=== PATIENT | female | born 1940 | race Caucasian/White ===

== ENCOUNTER 2016-07-03 15:34 | Observation (INO) | payer OTHER, MEDICARE ==
[~2016-07-03] VITALS: Ht 162.6 cm; Wt 77.2 kg
[~2016-07-03 15:34] MED LIST: CIPR-255 PO; CLTP PO; FLVHFA110 INH; GABA-1218 PO; LISI20TA55 PO; ONDA4TAB7 SL; PANT40TA PO; TRAM-10 PO
[2016-07-03] MEDS ORDERED: ASPIRIN 81 MG CHEW PO STA (16:43)
--- NOTE | 2016-07-03 16:48 | EMERGENCY ROOM VISIT NOTE ---
ED Visit Note First contact with patient: 16:26 I have seen and examined this patient with Yobani David and generally agree with the treatment plan as discussed. Problem List Medical Problems: (1) Asthma Status: Chronic (2) Chronic polyps Status: Chronic (3) DJD (degenerative joint disease) Status: Chronic (4) Esophageal Reflux Status: Chronic (5) Fusion of lumbar spine Status: Resolved (6) HTN Status: Chronic (7) Tubal Ligation Status Status: Chronic Surgical Problems: (1) History of appendectomy Status: Resolved (2) Previous back surgery Status: Resolved (3) S/P knee replacement Status: Resolved Current/Historical Medications Scheduled Calcium/Vitamin D (Caltrate 600 Plus *), 1 TAB PO DAILY Ciprofloxacin Hcl (Cipro), 500 MG PO BID Fluticasone Propionate (Flovent Hfa 110MCG Inhaler *), 2 PUFF INH BID Gabapentin (Neurontin), 300 MG PO DHS Lisinopril/Hctz (Prinzide 20-25MG), 1 TAB PO DAILY Pantoprazole Sodium (Protonix), 40 MG PO DAILY Scheduled PRN Ondansetron (Zofran Odt), 4 MG SL Q6H PRN for Nausea Tramadol (Ultram), 50 MG PO Q6 PRN for Pain Allergies Coded Allergies: No Known Allergies (Verified , 10/21/14) Vital Signs Date Time Temp Pulse Resp B/P Pulse Ox O2 Delivery O2 Flow Rate FiO2 07/03/16 16:25 74 07/03/16 16:20 79 18 133/66 99 Room Air 07/03/16 16:20 98 Room Air 07/03/16 15:47 36.9 81 18 141/80 97 Room Air Laboratory Results Test 07/03/16 16:43 Departure Information Referrals Ludwin Jackson III, M.D. (PCP) Patient Instructions My [facility]
[2016-07-03 16:51] LABS: BASO % 0.3 %; BASO ABS # 0.02 K/uL (0-0.2); COMPLETE YES; EOS % 3.8 %; HEMATOCRIT 37.8 % (37-47); IG% 0.2 %; LYMPH ABS # 1.98 K/uL (1.2-3.4); MEAN CORPUSCULAR HEMOGLOBIN 31.1 pg (25-34); MEAN CORPUSCULAR HGB CONC 33.1 g/dl (32-36); MEAN PLATELET VOLUME 8.8 fL (7.4-10.4); MONO % 9.4 %; NEUT % 56.3 %; PLATELET COUNT 242 K/uL (130-400); RED BLOOD COUNT 4.02 M/uL (4.2-5.4); WHITE BLOOD COUNT 6.61 K/uL (4.8-10.8)
[2016-07-03] MEDS ORDERED: FLVHFA110 INH (16:52)
[2016-07-03] MEDS ORDERED: SUCR1TAB29 PO (16:52)
[2016-07-03] MEDS ORDERED: ASPI81TA28 PO (16:52)
[2016-07-03] MEDS ORDERED: LSN/10125 PO (16:52)
[2016-07-03] MEDS ORDERED: CALCTAB7 PO (16:52)
[2016-07-03] MEDS ORDERED: PENI-82 PO (16:52)
[2016-07-03] MEDS ORDERED: SACC250C PO (16:52)
[2016-07-03 17:06] LABS: PROTHROMBIN TIME (PATIENT) 10.2 SECONDS (9.0-12.0)
[2016-07-03 17:13] LABS: BUN/CREATININE RATIO 21.4 (10-20); CALCIUM 9.1 mg/dl (8.5-10.1); CREATININE 0.82 mg/dl (0.60-1.20)
[2016-07-03 17:19] LABS: ALB/GLOB RATIO 0.9 (0.9-2); CKMB/CK RATIO 1.7 (0-3.0)
--- NOTE | 2016-07-03 17:34 | DIAGNOSTIC IMAGING REPORT ---
CHEST ONE VIEW PORTABLE CLINICAL HISTORY: Atypical chest pain COMPARISON STUDY: 10/21/2014 FINDINGS: The cardiac and mediastinal contours are normal. There is no evidence of focal pulmonary consolidation. There is no evidence of failure. No pleural effusions are visualized.[ There is right shoulder calcific tendinitis. IMPRESSION: No active disease in the chest. Electronically signed by: Sandeep Carter M.D. 07/03/2016 5:33 PM Dictated Date/Time: 07/03/2016 5:32 PM
--- NOTE | 2016-07-03 17:46 | EMERGENCY ROOM VISIT NOTE ---
History First contact with patient: 16:26 Chief Complaint: CHEST PAIN Stated Complaint: PAIN IN HEART/CHEST Nursing Triage Summary: Pt c/o 'Pains in my chest", left side, since 0130 this morning. Denies SOB at rest. Pain radiates into left back and left arm. When she first woke up there was pain in her face as well. History of Present Illness Patient is 75-year-old white female with past medical history significant for hypertension and GERD who presents emergency department for evaluation of chest pain 14 hours. Patient reports that she has actually been having episodes of chest pain intermittently for the last few months. She was set up for a stress test, but did not follow through with it. She states that she was woken from sleep at 1:30 this morning with a "hard" midsternal chest pain that radiated to her left face. She had difficulty getting comfortable. She paced for about an hour, sent in her chair for a little bit, and gradually the pain subsided. She reported feeling a little off balance and stated that her "head felt funny" during the episode of pain. She denies any associated shortness of breath, nausea or vomiting. She did not take any medications for her pain. At its worst, she would've rated it a 10/10. She has continued to have mild episodes of pain that comes and goes throughout the day. She presently rates her discomfort a 2/10. She notes that she has recently begun to experience shortness of breath and chest pain when walking [place]. She does have a history of acid reflux, but states that she was recently placed on a new medication for this, and it has actually helped her symptoms. The pain she experienced today did not seem consistent with her reflux. She has not been ill recently with any cold or upper respiratory symptoms. She denies any cough or sputum production. No abdominal pain or urinary symptoms. She reports chronic diarrhea since having C. difficile colitis last year. Review of Systems Review of systems as per HPI. All other systems reviewed were negative. 10 systems reviewed. Past Medical/Surgical History Medical Problems: (1) Asthma (2) Chronic polyps (3) Dehydration (4) DJD (degenerative joint disease) (5) Esophageal Reflux (6) HTN (7) UTI (urinary tract infection) (8) Vomiting Surgical Problems: (1) Fusion of lumbar spine (2) History of appendectomy (3) Previous back surgery (4) S/P knee replacement (5) Tubal Ligation Status Electronic medical records are reviewed and summarized as above/below. See Problem List. Family History Gastrointestinal disorder Heart disease Hypertension Social History Smoking Status: Never Smoker Alcohol Use: none Drug Use: none Marital Status: Housing Status: lives with family Current/Historical Medications Scheduled Aspirin (Aspirin Ec), 81 MG PO DAILY Calcium Carbonate-Vitamin D W/ (Caltrate 600 Plus), 1 TAB PO DAILY Fluticasone Propionate (Flovent Hfa), 2 PUFF INH BID Hctz/Lisinopril (Lisinopril/Hctz 10/12.5 Mg), 1 TAB PO DAILY Penicillin V Potassium (Veetids), 500 MG PO QID Saccharomyces Boulardii (Florastor), 1 CAP PO DAILY Sucralfate (Carafate), 1 GM PO DAILY Allergies Coded Allergies: No Known Allergies (Verified , 07/03/16) Physical Exam Vital Signs Date Time Temp Pulse Resp B/P Pulse Ox O2 Delivery O2 Flow Rate FiO2 07/03/16 17:47 77 18 129/78 97 Room Air 07/03/16 16:25 74 07/03/16 16:20 79 18 133/66 99 Room Air 07/03/16 16:20 98 Room Air 07/03/16 15:47 36.9 81 18 141/80 97 Room Air Physical Exam CONSTITUTIONAL: Patient is a pleasant, well-appearing 75-year-old white female who is awake and alert and in no acute distress. EYES: Pupils equal, round, reactive to light and accommodation. EOMs intact without nystagmus. Sclera are anicteric. ENT: Tympanic membranes intact, with normal landmarks. External canals are clear. Oral and nasopharynx are clear. Mucous membranes are moist, no lesions , tongue and gums appear normal. NECK: No bruits auscultated. Supple without lymphadenopathy. No thyromegaly. No meningeal signs. Full active range of motion without discomfort. CARDIOVASCULAR: Regular rate and rhythm, with normal S1 and S2, no murmur or gallop or rub is heard. No carotid bruits auscultated. No JVD. Peripheral pulses easy to palpable. RESPIRATORY: Breath sounds equal and clear to auscultation without wheezes, rales, or rhonchi heard. Full and equal chest expansion without accessory muscle use or retractions. GI: Bowel sounds are present. Abdomen is soft, nontender, nondistended. No organomegaly. No pulsatile masses. No guarding or rebound. MUSCULOSKELETAL: Full range of motion of extremities x 4 with good strength. No cyanosis, edema, joint tenderness or swelling. No deformity. INTEGUMENTARY: No lesions or rash, normal skin turgor. NEUROLOGICAL: Alert, oriented, and cooperative. Cranial nerves, sensation and strength grossly intact. Pupils round, equal, and react to light, EOMs are full. LYMPH: No lymphadenopathy. Medical Decision & Procedures ER Provider Diagnostic Interpretation: CHEST ONE VIEW PORTABLE CLINICAL HISTORY: Atypical chest pain COMPARISON STUDY: 10/21/2014 FINDINGS: The cardiac and mediastinal contours are normal. There is no evidence of focal pulmonary consolidation. There is no evidence of failure. No pleural effusions are visualized. There is right shoulder calcific tendinitis. IMPRESSION: No active disease in the chest. Laboratory Results 07/03/16 16:30 Red Blood Count 4.02, Mean Corpuscular Volume 94.0, Mean Corpuscular Hemoglobin 31.1, Mean Corpuscular Hemoglobin Concent 33.1, Mean Platelet Volume 8.8, Neutrophils (%) (Auto) 56.3, Lymphocytes (%) (Auto) 30.0, Monocytes (%) (Auto) 9.4, Eosinophils (%) (Auto) 3.8, Basophils (%) (Auto) 0.3, Neutrophils # (Auto) 3.73, Lymphocytes # (Auto) 1.98, Monocytes # (Auto) 0.62, Eosinophils # (Auto) 0.25, Basophils # (Auto) 0.02 07/03/16 16:30 Test 07/03/16 16:30 07/03/16 16:48 White Blood Count 6.61 K/uL (4.8-10.8) Red Blood Count 4.02 M/uL (4.2-5.4) Hemoglobin 12.5 g/dL (12.0-16.0) Hematocrit 37.8 % (37-47) Mean Corpuscular Volume 94.0 fL (80-100) Mean Corpuscular Hemoglobin 31.1 pg (25-34) Mean Corpuscular Hemoglobin Concent 33.1 g/dl (32-36) Platelet Count 242 K/uL (130-400) Mean Platelet Volume 8.8 fL (7.4-10.4) Neutrophils (%) (Auto) 56.3 % Lymphocytes (%) (Auto) 30.0 % Monocytes (%) (Auto) 9.4 % Eosinophils (%) (Auto) 3.8 % Basophils (%) (Auto) 0.3 % Neutrophils # (Auto) 3.73 K/uL (1.4-6.5) Lymphocytes # (Auto) 1.98 K/uL (1.2-3.4) Monocytes # (Auto) 0.62 K/uL (0.11-0.59) Eosinophils # (Auto) 0.25 K/uL (0-0.5) Basophils # (Auto) 0.02 K/uL (0-0.2) RDW Standard Deviation 48.9 fL (36.4-46.3) RDW Coefficient of Variation 14.1 % (11.5-14.5) Immature Granulocyte % (Auto) 0.2 % Immature Granulocyte # (Auto) 0.01 K/uL (0.00-0.02) Prothrombin Time 10.2 SECONDS (9.0-12.0) Prothromb Time International Ratio 1.0 (0.9-1.1) Activated Partial Thromboplast Time 25.9 SECONDS (21.0-31.0) Partial Thromboplastin Ratio 1.0 Anion Gap 5.0 mmol/L (3-11) Est Creatinine Clear Calc Drug Dose 59.1 ml/min Estimated GFR () 80.6 Estimated GFR (Non- 69.5 BUN/Creatinine Ratio 21.4 (10-20) Calcium Level 9.1 mg/dl (8.5-10.1) Total Bilirubin 0.3 mg/dl (0.2-1) Aspartate Amino Transf (AST/SGOT) 21 U/L (15-37) Alanine Aminotransferase (ALT/SGPT) 19 U/L (12-78) Alkaline Phosphatase 85 U/L (45-117) Total Creatine Kinase 92 U/L (26-192) Creatine Kinase MB 1.6 ng/ml (0.5-3.6) Creatine Kinase MB Ratio 1.7 (0-3.0) Total Protein 7.5 gm/dl (6.4-8.2) Albumin 3.5 gm/dl (3.4-5.0) Globulin 4.0 gm/dl (2.5-4.0) Albumin/Globulin Ratio 0.9 (0.9-2) Bedside Troponin I 0.000 ng/ml (0-0.045) Medications Administered Medications (Trade) Dose Ordered Sig/Luis Route Start Time Stop Time Status Last Admin Dose Admin Aspirin (Aspirin Chew) 324 mg NOW STAT PO 07/03/16 16:43 07/03/16 16:46 DC 07/03/16 16:53 324 MG ECG Indication: chest pain Rate (beats per minute): 73 Rhythm: normal sinus Findings: no acute ischemic change, no ectopy Change: no significant change ED Course The patient was seen and assessed as above. Old records were reviewed. IV access was obtained and laboratory studies were collected. EKG was performed and was as noted above. She is placed on a cardiac rehabilitation program director. She was medicated with aspirin 324 mg chewable. Chest x-ray was obtained and was unremarkable. Laboratory studies noted a normal white count of 6600, H&H 12.5 and 37.8, platelets 242,000, INR 1.0. Electrolytes are within normal limits. Renal function is normal. Liver functions are not elevated and cardiac enzymes are negative 1. The patient rested comfortably and remained hemodynamically stable while in the emergency department awaiting the results of her workup. All laboratory and diagnostic imaging studies were reviewed with attending physician who also independently evaluated the patient. Findings were discussed with the patient and her daughter at length. She has a negative workup for ischemia at this time , however given her presentation and comorbidities, it was felt that the patient would benefit from further care and evaluation in the hospital. She was reviewed with the [facility] service for further management. Differential diagnosis includes acute myocardial infarction, acute coronary syndrome, myocarditis, pericarditis, unstable angina, pulmonary embolism, pneumonia, pneumothorax, cardiomyopathy, congestive heart failure, anemia , asthma exacerbation, GERD, esophagitis, musculoskeletal, anxiety, costochondritis, among others. Medical Decision See ED course. Impression Primary Impression: Substernal precordial chest pain Departure Information Referrals Ludwin Jackson III, M.D. (PCP) [facility] Instructions [facility]
[2016-07-03] MEDS ORDERED: ACETAMINOPHEN 325 MG TAB PO PRN (19:45)
[2016-07-03] MEDS ORDERED: ONDANSETRON INJ 2 MG/ML 2 ML VIAL IV PRN (19:45)
[2016-07-03] MEDS ORDERED: FLUTICASONE HFA 110MCG INHALER INH PRN (20:00)
[2016-07-03] MEDS ORDERED: IV FLUIDS COMPLETED PRN (20:00)
--- NOTE | 2016-07-03 20:25 | History and Physical ---
History & Physical Date & Time of Service: July 03, 2016 at 19:48 Chief Complaint: Pain In Heart/Chest Primary Care Physician: Ludwin Jackson III, M.D. History of Present Illness Source: patient, clinic records This is a 75 year old female with PMH of hypertension, GERD, asthma, and other problems listed below who presents to the ED for chest pain. Patient states pain started at 1:30 am this morning. She describes discomfort as "pain" in left chest with radiation to left jaw, left arm, left shoulder. She tried pacing and sitting then eventually went back to sleep. Then throughout the day she continued with intermittent chest pain throughout the day. This was unrelated to activity. She also noted her head "not feeling right" today. She called her PCP today at the prompting of her family and was referred to the ER. Currently pain is rated 2-3/10. She does report for past few months she had similar pain when exerting herself walking uphill and had associated DAWSON. She was given 4 baby aspirin in ER. She has been taking Carafate with improvement of her reflux symptoms. She states today's chest pain feels different from her reflux. She reports chronic diarrhea since having C. diff 1 year ago. No fever, chills, diaphoresis, dizziness, vision change, CHAU, weakness, numbness, URI symptoms, cough, SOB at rest, wheezing, N/V, urinary change, edema, calf pain, rash, anxiety. No recent heavy lifting. She has chronic back and knee joint issues. Last stress test in 2003 was negative. Pt states about a month ago stress test was ordered by PCP but she did not have it done. Past Medical/Surgical History Medical Problems: Asthma Status: Chronic Chronic polyps Status: Resolved DJD (degenerative joint disease) Status: Chronic GERD (gastroesophageal reflux disease) Status: Chronic HTN Status: Chronic Surgical Problems: Fusion of lumbar spine Status: Resolved H/O total knee replacement Status: Chronic H/O tubal ligation Status: Chronic History of appendectomy Status: Resolved S/P dilatation and curettage Status: Chronic S/P knee replacement Status: Resolved Family History Gastrointestinal disorder Heart disease FATHER ( of [place] in his 70s) UNCLE UNCLE Hypertension Social History Smoking Status: Never Smoker Alcohol Use: none Marital Status: Housing status: lives with significant other Immunizations History of Influenza Vaccine: No History of Tetanus Vaccine?: No History of Pneumococcal: No History of Hepatitis B Vaccine: No Multi-Drug Resistant Organisms History of MDRO: No Allergies Coded Allergies: No Known Allergies (Verified , 07/03/16) Home Medications Scheduled Aspirin (Aspirin Ec), 81 MG PO HS Calcium Carbonate-Vitamin D W/ (Caltrate 600 Plus), 1 TAB PO DAILY Hctz/Lisinopril (Lisinopril/Hctz 10/12.5 Mg), 1 TAB PO DAILY Saccharomyces Boulardii (Florastor), 1 CAP PO BID Sucralfate (Carafate), 1 GM PO ACHS Scheduled PRN Fluticasone Propionate (Flovent Hfa), 2 PUFF INH BID PRN for SOB/Wheezing Review of Systems Ten systems reviewed and negative except as noted in HPI. Physical Exam Vital Signs Date Time Temp Pulse Resp B/P Pulse Ox O2 Delivery O2 Flow Rate FiO2 07/03/16 19:43 75 18 156/78 98 Room Air 07/03/16 17:47 77 18 129/78 97 Room Air 07/03/16 16:25 74 07/03/16 16:20 79 18 133/66 99 Room Air 07/03/16 16:20 98 Room Air 07/03/16 15:47 36.9 81 18 141/80 97 Room Air General Appearance: WD/WN, no apparent distress, + pertinent finding (pleasant alert 75 year old female, daughter and son at bedside) Head: normocephalic, atraumatic Eyes: normal inspection, PERRL, EOMI, sclerae normal ENT: hearing grossly normal, pharynx normal Neck: supple, trachea midline Respiratory/Chest: lungs clear, normal breath sounds, no respiratory distress Cardiovascular: regular rate, rhythm, no murmur, normal peripheral pulses Abdomen/GI: normal bowel sounds, non tender, soft Extremities/Musculoskelatal: no calf tenderness, no pedal edema, + pertinent finding (no pain with left shoulder ROM) Neurologic/Psych: alert, normal mood/affect, oriented x 3, + pertinent finding (no focal deficit on gross examination) Skin: normal color, warm/dry, no rash (no rash on the chest) Diagnostics Laboratory Results Results Past 24 Hours Test 07/03/16 16:30 07/03/16 16:48 Range/Units White Blood Count 6.61 4.8-10.8 K/uL Red Blood Count 4.02 4.2-5.4 M/uL Hemoglobin 12.5 12.0-16.0 g/dL Hematocrit 37.8 37-47 % Mean Corpuscular Volume 94.0 80-100 fL Mean Corpuscular Hemoglobin 31.1 25-34 pg Mean Corpuscular Hemoglobin Concent 33.1 32-36 g/dl Platelet Count 242 130-400 K/uL Mean Platelet Volume 8.8 7.4-10.4 fL Neutrophils (%) (Auto) 56.3 % Lymphocytes (%) (Auto) 30.0 % Monocytes (%) (Auto) 9.4 % Eosinophils (%) (Auto) 3.8 % Basophils (%) (Auto) 0.3 % Neutrophils # (Auto) 3.73 1.4-6.5 K/uL Lymphocytes # (Auto) 1.98 1.2-3.4 K/uL Monocytes # (Auto) 0.62 0.11-0.59 K/uL Eosinophils # (Auto) 0.25 0-0.5 K/uL Basophils # (Auto) 0.02 0-0.2 K/uL RDW Standard Deviation 48.9 36.4-46.3 fL RDW Coefficient of Variation 14.1 11.5-14.5 % Immature Granulocyte % (Auto) 0.2 % Immature Granulocyte # (Auto) 0.01 0.00-0.02 K/uL Prothrombin Time 10.2 9.0-12.0 SECONDS Prothromb Time International Ratio 1.0 0.9-1.1 Activated Partial Thromboplast Time 25.9 21.0-31.0 SECONDS Partial Thromboplastin Ratio 1.0 Sodium Level 142 136-145 mmol/L Potassium Level 4.0 3.5-5.1 mmol/L Chloride Level 107 98-107 mmol/L Carbon Dioxide Level 30 21-32 mmol/L Anion Gap 5.0 3-11 mmol/L Blood Urea Nitrogen 18 7-18 mg/dl Creatinine 0.82 0.60-1.20 mg/dl Est Creatinine Clear Calc Drug Dose 59.1 ml/min Estimated GFR () 80.6 Estimated GFR (Non- 69.5 BUN/Creatinine Ratio 21.4 10-20 Random Glucose 94 70-99 mg/dl Calcium Level 9.1 8.5-10.1 mg/dl Total Bilirubin 0.3 0.2-1 mg/dl Aspartate Amino Transf (AST/SGOT) 21 15-37 U/L Alanine Aminotransferase (ALT/SGPT) 19 12-78 U/L Alkaline Phosphatase 85 45-117 U/L Total Creatine Kinase 92 26-192 U/L Creatine Kinase MB 1.6 0.5-3.6 ng/ml Creatine Kinase MB Ratio 1.7 0-3.0 Total Protein 7.5 6.4-8.2 gm/dl Albumin 3.5 3.4-5.0 gm/dl Globulin 4.0 2.5-4.0 gm/dl Albumin/Globulin Ratio 0.9 0.9-2 Bedside Troponin I 0.000 0-0.045 ng/ml Diagnostic Radiology CHEST ONE VIEW PORTABLE CLINICAL HISTORY: Atypical chest pain COMPARISON STUDY: 10/21/2014 FINDINGS: The cardiac and mediastinal contours are normal. There is no evidence of focal pulmonary consolidation. There is no evidence of failure. No pleural effusions are visualized.[ There is right shoulder calcific tendinitis. IMPRESSION: No active disease in the chest. EKG NSR, no ST or T wave abnormalities, no significant change from prior EKG as confirmed by cardiology read Impression Assessment and Plan CHEST PAIN Rule out ACS; risk factors include hypertension, age, + family history 2 month history of exertional CP/ DAWSON; now having pain at rest CXR- no acute findings EKG- no ischemic findings Initial troponin negative Trend serial cardiac enzymes Check echo Fasting lipid panel in am Given aspirin 324 mg in ER Continue baby aspirin NPO after midnight Consult cardiology for inpatient vs. outpatient dobutamine stress test HYPERTENSION BP is stable Continue lisinopril-HCTZ ASTHMA Not in acute exacerbation Continue home inhaler GERD Continue Carafate DVT PROPHYLAXIS Lovenox SQ CODE STATUS Full code DISPOSITION Observation to telemetry Lives with Follows with Dr. Jackson for primary care Patient seen in collaboration with Dr. Brink. Please see his addendum. VTE Prophylaxis VTE Risk Assessment Done? Y/N: Yes Risk Level: Moderate
--- NOTE | 2016-07-03 20:29 | History and Physical ---
History & Physical Date of Service July 03, 2016. History & Physical This is a 75 year old female with a PMH of HTN, asthma, GERD presents with chest pain that has been intermittent for the past few months - she was to get an outpatient stress test as per PCP, but she never got this done. She states that the left sided chest pain began at night, and woke her up from sleep - it radiated to her jaw and left arm. No associated SOB/DAWSON, no nausea/vomiting, no fevers/chills. Chest pain has subsided since presenting to the ER. VITALS: Last Vital Signs Documentation Date Time Temp Pulse Resp B/P Pulse Ox O2 Delivery O2 Flow Rate FiO2 07/03/16 19:43 75 18 156/78 98 Room Air 07/03/16 15:47 36.9 GEN: no acute distress HEENT: NC/AT CVS: +S1, S2, RRR LUNGS: CTA b/l, no wheezing ABD: soft, NT/ND EXT: no edema Chest Pain r/o ACS EKG with no ST interval changes, no T wave changes; NSR initial set of cardiac enzymes negative will obtain three sets of enzymes echo for completeness continue aspirin no nitro given as chest pain has resolved cardiology consultation - stress testing HTN blood pressure slightly elevated she takes Lisinopril-HCTZ at home, which we will continue monitor BP and adjust accordingly GERD she takes carafate, which helps her epigastric pain, possibly from GERD? Asthma continue home inhalers, in no exacerbation DVT ppx Lovenox FULL CODE
[2016-07-03] MEDS: SACCHAROMYCES BOUL (FLORASTOR) 250 MG CAP PO SCH (21:00)
[2016-07-03] MEDS ORDERED: ASPIRIN 81 MG ECTAB PO SCH (21:00)
[2016-07-03 21:09] VITALS: BP 161/82; PULSE 74; TEMP 36.7; O2SAT 98
[2016-07-03] MEDS ORDERED: ENOXAPARIN 40 MG/0.4 ML SYR SC SCH (22:00)
[2016-07-03 22:27] VITALS: Ht 162.6 cm; Wt 77.2 kg
[2016-07-03] MEDS: SUCRALFATE 1 GM TAB PO SCH (22:31)
[2016-07-03 22:44] VITALS: BP 151/83; PULSE 70; TEMP 36.1; O2SAT 97
[2016-07-03 23:54] LABS: CKMB/CK RATIO 2.4 (0-3.0)
[2016-07-04] VITALS (7 sets, daily range): BP systolic 102–148; BP diastolic 64–82; PULSE 67–77; TEMP 36.5–36.7; O2SAT 93–98
[2016-07-04 06:03] LABS: MEAN CORPUSCULAR HEMOGLOBIN 30.5 pg (25-34); MEAN CORPUSCULAR HGB CONC 32.5 g/dl (32-36); MEAN PLATELET VOLUME 8.8 fL (7.4-10.4); PLATELET COUNT 210 K/uL (130-400); RED BLOOD COUNT 3.83 M/uL (4.2-5.4); WHITE BLOOD COUNT 5.65 K/uL (4.8-10.8)
[2016-07-04] MEDS: SUCRALFATE 1 GM TAB PO SCH ×2 (06:08→13:20)
[2016-07-04 06:33] LABS: BLOOD UREA NITROGEN 17 mg/dl (7-18); BUN/CREATININE RATIO 21.1 (10-20); CALCIUM 8.9 mg/dl (8.5-10.1); CARBON DIOXIDE 32 mmol/L (21-32); CHLORIDE 105 mmol/L (98-107); CREATININE 0.81 mg/dl (0.60-1.20); GLUCOSE 89 mg/dl (70-99); POTASSIUM 3.7 mmol/L (3.5-5.1); SODIUM 142 mmol/L (136-145)
[2016-07-04 06:38] LABS: CHOLESTEROL 197 mg/dl (0-200); CHOLESTEROL/HDL RATIO 3.1; CKMB/CK RATIO 1.6 (0-3.0); HDL CHOLESTEROL 64 mg/dl; LDL CHOLESTEROL CALCULATED 113 mg/dl; TRIGLYCERIDES 100 mg/dl (0-150); VERY LOW DENSITY LIPOPROT CALC 20 mg/dl
[2016-07-04] MEDS ORDERED: CALCIUM 600MG + VIT D 400 IU TAB PO SCH (09:00)
[2016-07-04] MEDS ORDERED: LISINOPRIL/HCTZ 10/12.5MG TAB PO SCH (09:00)
--- NOTE | 2016-07-04 10:56 | ECHOCARDIOGRAM REPORT ---
*NOTICE TO RECEIVING LIBERTARIAN AGENCY This information is strictly Confidential and protected under [place] law. [place] law prohibits you from making any further disclosure of this information unless further disclosure is expressly permitted by the written consent of the person to whom it pertains or is authorized by law. A general authorization for the release of medical or other information is not sufficient for this purpose. Hospital accepts no responsibility if the information is made available to any other person, INCLUDING THE PATIENT. Interpretation Summary * Conclusions -- * Ejection Fraction = 60-65%. * The left ventricular wall motion is normal. * Aortic valve sclerosis mild, without significant aortic valvular stenosis. * There is mild tricuspid regurgitation. Procedure Details * A complete two-dimensional transthoracic echocardiogram was performed (2D, M-mode, Doppler and color flow Doppler). Left Ventricle * The left ventricle is normal in size. * There is no thrombus. * There is normal left ventricular wall thickness. * Ejection Fraction = 60-65%. * Left ventricular systolic function is normal. * The left ventricular wall motion is normal. Right Ventricle * The right ventricle is normal size. * The right ventricular systolic function is normal as assessed by tricuspid annular plane systolic excursion (TAPSE) (normal >1.5 cm). Atria * The left atrial size is normal. * Right atrial size is normal. * There is no evidence of atrial septal defect, but resolution does not allow assessment for a patent foramen ovale. Mitral Valve * There is mild mitral annular calcification. * There is no mitral valve stenosis. * Significant mitral regurgitation is absent. Tricuspid Valve * The tricuspid valve is normal. * There is no tricuspid stenosis. * There is mild tricuspid regurgitation. * Doppler findings do not suggest pulmonary hypertension. Aortic Valve * The aortic valve is trileaflet. * Aortic valve sclerosis mild, without significant aortic valvular stenosis. * Aortic stenosis is absent. * There is no significant aortic regurgitation. Pulmonic Valve * The pulmonary valve is not well seen, but the Doppler examination is normal without significant regurgitation or stenosis. Great Vessels * The aortic root and proximal ascending aorta are normal sized. Pericardium/Pleural * There is no pericardial effusion. Great Vessels * Normal inferior vena cava diameter and respiratory variation suggests normal central venous pressure. Left Ventricular Diastolic Function * Pulse wave TDI of the anterior and posterior mitral annulas demonstrates normal LV relaxation MMode 2D Measurements and Calculations IVSd 0.88 cm LVIDd 3.9 cm LVIDs 2.5 cm LVPWd 0.84 cm IVS/LVPW 1.1 FS 36.3 % EDV(Teich) 64.4 ml ESV(Teich) 21.4 ml EF(Teich) 66.7 % EDV(cubed) 57.6 ml ESV(cubed) 14.9 ml EF(cubed) 74.2 % LV mass(C)d 97.2 grams LV mass(C)dI 53.0 grams/m\S\2 SV(Teich) 42.9 ml SI(Teich) 23.4 ml/m\S\2 SV(cubed) 42.7 ml SI(cubed) 23.3 ml/m\S\2 Ao root diam 3.0 cm Ao root area 7.0 cm\S\2 ACS 1.8 cm LA dimension 2.3 cm asc Aorta Diam 2.9 cm LA/Ao 0.77 LVOT diam 2.0 cm LVOT area 3.1 cm\S\2 LVAd ap4 18.7 cm\S\2 LVLd ap4 6.6 cm EDV(MOD-sp4) 45.4 ml EDV(sp4-el) 45.4 ml LVAs ap4 10.0 cm\S\2 LVLs ap4 5.9 cm ESV(MOD-sp4) 15.2 ml ESV(sp4-el) 14.5 ml EF(MOD-sp4) 66.5 % EF(sp4-el) 68.0 % LVAd ap2 18.8 cm\S\2 LVLd ap2 6.3 cm EDV(MOD-sp2) 48.8 ml EDV(sp2-el) 47.7 ml LVAs ap2 9.9 cm\S\2 LVLs ap2 4.9 cm ESV(MOD-sp2) 16.8 ml ESV(sp2-el) 16.9 ml EF(MOD-sp2) 65.5 % EF(sp2-el) 64.6 % LVLd %diff -4.66 % EDV(MOD-bp) 46.6 ml LVLs %diff -18.75 % ESV(MOD-bp) 17.3 ml EF(MOD-bp) 63.0 % SV(MOD-sp4) 30.2 ml SI(MOD-sp4) 16.4 ml/m\S\2 SV(MOD-sp2) 31.9 ml SI(MOD-sp2) 17.4 ml/m\S\2 SV(MOD-bp) 29.4 ml SI(MOD-bp) 16.0 ml/m\S\2 SV(sp4-el) 30.9 ml SI(sp4-el) 16.8 ml/m\S\2 SV(sp2-el) 30.8 ml SI(sp2-el) 16.8 ml/m\S\2 Doppler Measurements and Calculations MV E max corinne 91.2 cm/sec MV A max corinne 84.4 cm/sec MV E/A 1.1 MV dec time 0.23 sec Ao V2 max 120.2 cm/sec Ao max PG 5.8 mmHg Ao max PG (full) 0.45 mmHg BOBY(V,A) 3.0 cm\S\2 BOBY(V,D) 3.0 cm\S\2 LV V1 max PG 5.3 mmHg LV V1 max 115.4 cm/sec PA V2 max 83.4 cm/sec PA max PG 2.8 mmHg PA acc slope 536.8 cm/sec\S\2 PA acc time 0.10 sec PI max corinne 97.3 cm/sec PI max PG 3.8 mmHg PI dec slope 82.2 cm/sec\S\2 PI P1/2t 346.5 msec TR max corinne 221.1 cm/sec PA pr(Accel) 33.1 mmHg
--- NOTE | 2016-07-04 11:56 | CARDIOLOGY CONSULTATION ---
DATE OF CONSULTATION: 07/04/2016 REASON FOR CONSULTATION: Chest pain. REFERRING PHYSICIAN: Dr. Brink. CHIEF COMPLAINT ON ADMISSION: Chest pain. HISTORY OF PRESENT ILLNESS: Ms. Nicolas is a 75-year-old female, presented to the Emergency Department with chest discomfort at rest. The patient describes a pain in her left chest, which radiated to left side of her jaw and face as well as left arm and shoulder. The pain aroused her from sleep. She began walking in the halls to improve the discomfort. The pain was not affected by activity. She reports intermittent chest discomfort over the last several months. She notes an area of her yard where she walks on an incline and is generally can induce chest pain. She is currently pain free. Carries a history of GERD; however, does not feel this pain is similar to her prior heartburn. Denies cough, fever, chills or URI symptoms. No orthopnea, PND, or lower extremity edema. Last stress was in 2008, found to be negative for inducible ischemia, according to the patient. She carries no personal history of coronary artery disease, congestive heart failure, dysrhythmia, or rheumatic fever as a child. REVIEW OF SYSTEMS: The pertinent positive noted above, a comprehensive 10-system review is otherwise negative. PAST MEDICAL HISTORY: 1. Reactive airways disease. 2. Colon polyps. 3. DJD. 4. GERD. 5. Hypertension. PAST SURGICAL HISTORY: 1. Lumbar fusion. 2. Total knee replacements. 3. Tubal ligation. 4. Appendectomy. 5. Dilatation and curettage. 6. Knee replacement. FAMILY HISTORY: Negative for premature CAD or sudden cardiac , however, noncontributory given patient's advanced age. SOCIAL HISTORY: Lifelong nonsmoker. She is , lives with her significant other. ALLERGIES: No known drug allergies. CURRENT HOME MEDICATIONS: 1. Aspirin 81 mg daily. 2. Calcium with vitamin D daily. 3. Zestoretic 10/12.5 daily. 4. Florastor 1 cap b.i.d. 5. Carafate 1 gram twice daily. 6. Flonase 2 puffs twice daily as needed. DATA: Electrocardiogram on admission: Normal sinus rhythm, within normal limits. Repeat ECG performed today, unchanged. Resting 2D transthoracic echo performed demonstrating mild aortic sclerosis without stenosis, preserved LV systolic function, no regional wall motion abnormality. LABORATORY DATA: Cardiac enzymes are negative x3 sets. Sodium is 142, potassium 3.7, chloride 105, CO2 is 32, BUN is 17, creatinine 0.81. White blood cell count is 5.65, hemoglobin is 11.7, and platelet count is 210. INR is 1.0. IMAGING DATA: Chest x-ray: No active disease in chest. PHYSICAL EXAMINATION: VITAL SIGNS: Temperature is 36.7 degrees centigrade, pulse 76 beats per minute and regular, respiratory rate 16 breaths per minute, blood pressure 103/64 and SaO2 is 96% on room air. GENERAL: NAD, awake, alert and oriented x3, healthy appearing. HEENT: Mucous membranes moist. No scleral icterus. Conjunctivae pink. NECK: Supple without JVD or HJR. No carotid bruit. HEART: Regular with a normal S1 and S2. There is a soft 1/6 systolic ejection murmur heard best at the right second intercostal space without radiation. LUNGS: Clear without rales, rhonchi or wheeze. ABDOMEN: Soft, nontender. No rebound or guarding. Normal bowel sounds. EXTREMITIES: Warm and dry. There is no clubbing, cyanosis, or edema. NEUROLOGIC: Demonstrates no focal deficit. FINAL IMPRESSION: 1. A 75-year-old female presents with resting chest discomfort which is somewhat atypical for angina; however, reports exertional chest pain over the past weeks to months which has been relieved with rest and concerning for exertional angina. 2. Hypertension, controlled. 3. Reactive airways disease. 4. Gastroesophageal reflux disease. PLAN AND RECOMMENDATIONS: The results of initial cardiac testing were discussed with the patient at length including negative cardiac enzymes, normal ECG, and normal resting 2D transthoracic echo. Dobutamine stress echocardiography recommended for further evaluation. We discussed inpatient versus outpatient testing. I have recommended inpatient dobutamine stress echo; however, patient is considering discharge and may prefer to follow up as an outpatient. She states she would be agreeable to return to the hospital with any recurrent chest pain in the interim. She is yet to make a final decision. If she stays, I will be happy to schedule her stress test on Wednesday morning. Thank you for allowing me to take part in the care of your patient.
[2016-07-04] MEDS: SACCHAROMYCES BOUL (FLORASTOR) 250 MG CAP PO SCH (13:20)
--- NOTE | 2016-07-04 15:38 | Discharge Instructions ---
Discharge Instructions Date of Service July 04, 2016. Admission Reason for Admission: Chest Pain Discharge Discharge Diagnosis / Problem: CHEST PAIN /ANGINA Discharge Goals Goal(s): Diagnostic testing Activity Recommendations Activity Limitations: as noted below ( TOLERATED ,PLEASE NOTIFY PHYSICIAN IF YOU GET CHEST PAIN WITH ACTIVITY ) . Instructions / Follow-Up Instructions / Follow-Up HOSPITAL FOLLOW UP WITH DR GARZA NEXT WEEK , OFFICE WILL CALL WITH APPOINTMENT NEED TO HAVE CARDIAC STRESS TEST AT [facility] , PLEASE HAVE IT SCHEDULED SOON POSSIBLE PLEASE COME TO ER WITH ANY CHEST DISCOMFORT, DIZZY SPELL , SHORTNESS OF BREATH , THESE COULD BE SIGN OF IMPENDING HEART ATTACK YOU MAY TAKE NITRO TAB UNDER YOUR TONGUE WITH ONSET OF CHEST PAIN Current Hospital Diet Patient's current hospital diet: AHA Diet (Heart Healthy) Discharge Diet Recommended Diet: AHA Diet (Heart Healthy) Pending Studies Studies pending at discharge: no Laboratory Results Lipid Panel Test 07/04/16 05:10 Range/Units Triglycerides Level 100 0-150 mg/dl Cholesterol Level 197 0-200 mg/dl HDL Cholesterol 64 mg/dl Cholesterol/HDL Ratio 3.1 LDL Cholesterol, Calculated 113 mg/dl Medical Emergencies . Who to Call and When: Medical Emergencies: If at any time you feel your situation is an emergency, please call 911 immediately. . Non-Emergent Contact Non-Emergency issues call your: Primary Care Provider . . "Provider Documentation" section prepared by lEsy Bridges. . VTE Core Measure Inpt VTE Proph given/why not?: Unfractionated heparin SQ
[2016-07-04] MEDS ORDERED: NTRGSL4 SL (15:42)
--- NOTE | 2016-07-04 17:03 | Discharge Summary ---
Discharge Summary Date of Service July 04, 2016. Discharge Summary Admission Date: July 03, 2016 at 21:07 Discharge Date: July 04, 2016 Discharge Disposition: Home Principal Diagnosis: CHEST PAIN /ANGINA Procedures: ECHO : * Ejection Fraction = 60-65%. * The left ventricular wall motion is normal. * Aortic valve sclerosis mild, without significant aortic valvular stenosis. * There is mild tricuspid regurgitation. Consultations: [facility] VALDIVIA Medication Reconciliation New Medications: Nitroglycerin (Nitrostat) 0.4 Mg/1 Tab Subl 1 TAB SL UD, #30 TAB 3 Refills TAKE 1 TAB UNDER THE TONGUE FOR CHEST PAIN MAY REPEAT IN EVERY 5 MINS UPTO 3 TIMES IF NO RELIEF Continued Medications: Aspirin (Aspirin Ec) 81 Mg Tab 81 MG PO HS Calcium Carbonate-Vitamin D W/ (Caltrate 600 Plus) 1 Tab Tab 1 TAB PO DAILY, TAB Fluticasone Propionate (Flovent Hfa) 120 Puffs/97060 Mcg Aero 2 PUFF INH BID PRN for SOB/Wheezing Hctz/Lisinopril (Lisinopril/Hctz 10/12.5 Mg) 1 Ea Tab 1 TAB PO DAILY, TAB Saccharomyces Boulardii (Florastor) 250 Mg Cap 1 CAP PO BID Sucralfate (Carafate) 1 Gm Tab 1 GM PO ACHS, TAB Dissolve in 2 oz warm water half an hour before meals and at bedtime. Admission Information HPI (per Admitting provider): This is a 75 year old female with PMH of hypertension, GERD, asthma, and other problems listed below who presents to the ED for chest pain. Patient states pain started at 1:30 am this morning. She describes discomfort as "pain" in left chest with radiation to left jaw, left arm, left shoulder. She tried pacing and sitting then eventually went back to sleep. Then throughout the day she continued with intermittent chest pain throughout the day. This was unrelated to activity. She also noted her head "not feeling right" today. She called her PCP today at the prompting of her family and was referred to the ER. Currently pain is rated 2-3/10. She does report for past few months she had similar pain when exerting herself walking uphill and had associated DAWSON. She was given 4 baby aspirin in ER. She has been taking Carafate with improvement of her reflux symptoms. She states today's chest pain feels different from her reflux. She reports chronic diarrhea since having C. diff 1 year ago. No fever, chills, diaphoresis, dizziness, vision change, CHAU, weakness, numbness, URI symptoms, cough, SOB at rest, wheezing, N/V, urinary change, edema, calf pain, rash, anxiety. No recent heavy lifting. She has chronic back and knee joint issues. Last stress test in 2003 was negative. Pt states about a month ago stress test was ordered by PCP but she did not have it done. Physical Exam (per Admitting): General Appearance: WD/WN, no apparent distress, + pertinent finding ( pleasant alert 75 year old female, daughter and son at bedside) Head: normocephalic, atraumatic Eyes: normal inspection, PERRL, EOMI, sclerae normal ENT: hearing grossly normal, pharynx normal Neck: supple, trachea midline Respiratory/Chest: lungs clear, normal breath sounds, no respiratory distress Cardiovascular: regular rate, rhythm, no murmur, normal peripheral pulses Abdomen/GI: normal bowel sounds, non tender, soft Extremities/Musculoskelatal: no calf tenderness, no pedal edema, + pertinent finding (no pain with left shoulder ROM) Neurologic/Psych: alert, normal mood/affect, oriented x 3, + pertinent finding (no focal deficit on gross examination) Skin: normal color, warm/dry, no rash (no rash on the chest) Hospital Course no complain of chest pain or SOB , wants to be discharged as soon as possible , pt is counselled that her symptom is concerning for possible heart disease , will benefit if she stays over weekend for Dobutamine stress test on Wednesday pt adamant to go home , not worried about having heart attack at home pt is counselled to return to ED with any onset of chest pain given script for SL nitro , explained how to use SL nitro with onset of chest pain and call 911 to come to ED pt is agreeable P/E: GEN : no sign of distress HEENT ; sclera non icteric LUNGS; CTA HEART : regular S1/S2 ABDOMEN : soft, non tender EXT ; no rash or deformity NEUROLOGY : no focal neurological deficit CHEST PAIN/angina symptom concerning for angina presented with 2 month history of exertional CP/ DAWSON; now having pain at rest CXR- no acute findings EKG- no ischemic findings ECHO: no wall motion abnormality appreciate cardiology input -pt is counselled to have Dobutamine stress test on Wednesday for evaluation for possible CAD pt denies to stay in hospital over the weekend wants to be followed up as out patient for Dobutamine stress test pt is counselled by Cardiology and myself to come to ED with any symptom of chest pain or SOB given script for SL nitro , explained how to use SL nitro with onset of chest pain and call 911 to come to ED pt is agreeable HYPERTENSION BP is stable Continue lisinopril-HCTZ ASTHMA Not in acute exacerbation Continue home inhaler GERD Continue Carafate DVT PROPHYLAXIS Lovenox SQ CODE STATUS Full code DISPOSITION pt is discharged home today will have Hospital follow up with Dr Garza early next week , and have out pt dobutamine stress test scheduled return to ED with any symptom of chest pain or SOB Discharge Instructions Discharge Instructions Date of Service July 04, 2016. Admission Reason for Admission: Chest Pain Discharge Discharge Diagnosis / Problem: CHEST PAIN /ANGINA Discharge Goals Goal(s): Diagnostic testing Activity Recommendations Activity Limitations: as noted below ( TOLERATED ,PLEASE NOTIFY PHYSICIAN IF YOU GET CHEST PAIN WITH ACTIVITY ) . Instructions / Follow-Up Instructions / Follow-Up HOSPITAL FOLLOW UP WITH DR GARZA NEXT WEEK , OFFICE WILL CALL WITH APPOINTMENT NEED TO HAVE CARDIAC STRESS TEST AT [facility] , PLEASE HAVE IT SCHEDULED SOON POSSIBLE PLEASE COME TO ER WITH ANY CHEST DISCOMFORT, DIZZY SPELL , SHORTNESS OF BREATH , THESE COULD BE SIGN OF IMPENDING HEART ATTACK YOU MAY TAKE NITRO TAB UNDER YOUR TONGUE WITH ONSET OF CHEST PAIN Current Hospital Diet Patient's current hospital diet: AHA Diet (Heart Healthy) Discharge Diet Recommended Diet: AHA Diet (Heart Healthy) Pending Studies Studies pending at discharge: no Laboratory Results Lipid Panel Test 07/04/16 05:10 Range/Units Triglycerides Level 100 0-150 mg/dl Cholesterol Level 197 0-200 mg/dl HDL Cholesterol 64 mg/dl Cholesterol/HDL Ratio 3.1 LDL Cholesterol, Calculated 113 mg/dl Medical Emergencies . Who to Call and When: Medical Emergencies: If at any time you feel your situation is an emergency, please call 911 immediately. . Non-Emergent Contact Non-Emergency issues call your: Primary Care Provider . . "Provider Documentation" section prepared by Elsy Bridges. . VTE Core Measure Inpt VTE Proph given/why not?: Unfractionated heparin SQ Additional Copies To Ludwin Garza III, M.D. Kopinski, Thomas O., DO
== END 2016-07-04 16:28 | disposition home or self-care (01) ==
LOC: ENRESERVDT → ENRESERVTM → C.EDB 15:36 → C.MED 21:07
PROVIDERS: ADMIT Family Medicine; ATTEND Hospitalist
DX: R07.9 Chest pain, unspecified (principal); I20.9 Angina pectoris, unspecified; I10 Essential (primary) hypertension; K21.9 Gastro-esophageal reflux disease without esophagitis; J45.909 Unspecified asthma, uncomplicated; Z98.51 Tubal ligation status; Z90.89 Acquired absence of other organs; Z98.890 Other specified postprocedural states; Z96.659 Presence of unspecified artificial knee joint; Z79.82 Long term (current) use of aspirin; Z79.899 Other long term (current) drug therapy; Z82.49 Family history of ischemic heart disease and other diseases of the circulatory system

== ENCOUNTER → 2016-08-04 | Outpatient (CLI) | payer OTHER, MEDICARE ==
[~2016-08-04] MED LIST changes: +ASPI81TA28 PO; +CALCTAB7 PO; -CIPR-255 PO; -CLTP PO; -GABA-1218 PO; -LISI20TA55 PO; +LSN/10125 PO; +NTRGSL4 SL; -ONDA4TAB7 SL; -PANT40TA PO; +SACC250C PO; +SUCR1TAB29 PO; -TRAM-10 PO
== END | disposition home or self-care (01) ==
LOC: C.PATHSPEC 14:06
PROVIDERS: ATTEND Dentist Endodontics
DX: K04.7 Periapical abscess without sinus (principal)

== ENCOUNTER 2018-06-19 23:13 | Observation (INO) ==
[2018-06-20 00:01] LABS: Basophils # (auto) 0.02 K/uL (0-0.2); Basophils % (auto) 0.3 %; Eosinophils # (auto) 0.42 K/uL (0-0.5); Eosinophils % (auto) 6.2 %; Hematocrit (blood only) 37.7 % (37-47); Hemoglobin 12.8 g/dL (12.0-16.0); Immature Granulocytes # (auto) 0.01 K/uL (0.00-0.02); Immature Granulocytes % (auto) 0.1 %; Lymphocytes # (auto) 2.01 K/uL (1.2-3.4); Lymphocytes % (auto) 29.5 %; Mean Corpuscular Volume 91.7 fL (80-100); Mean Platelet Volume 9.3 fL (7.4-10.4); Monocytes # (auto) 0.72 K/uL (0.11-0.59); Monocytes % (auto) 10.6 %; Neutrophils # (auto) 3.64 K/uL (1.4-6.5); Neutrophils % (auto) 53.3 %; Platelet Count 191 K/uL (130-400); RDW Coefficient of Variation 13.9 % (11.5-14.5); RDW Standard Deviation 46.5 fL (36.4-46.3); Red Blood Count 4.11 M/uL (4.2-5.4); White Blood Count 6.82 K/uL (4.8-10.8)
[2018-06-20 00:10] LABS: Alanine Aminotransferase 20 U/L (12-78); Albumin Level 3.6 gm/dl (3.4-5.0); Aspartate Aminotransferase 22 U/L (15-37); Blood Urea Nitrogen 19 mg/dl (7-18); Calcium 8.8 mg/dl (8.5-10.1); Carbon Dioxide 32 mmol/L (21-32); Chloride 107 mmol/L (98-107); Creatinine Clr Calc Pharmacy 48.4 ml/min; Est GFR (African American) 61.7; Est GFR (Non-African American) 53.3; Glucose 101 mg/dl (70-99); Magnesium 2.1 mg/dl (1.8-2.4); Potassium 3.3 mmol/L (3.5-5.1); Sodium 142 mmol/L (136-145)
[2018-06-20 00:15] LABS: Albumin Globulin Ratio 0.9 (0.9-2); Alkaline Phosphatase 108 U/L (45-117); Bilirubin,Total 0.4 mg/dl (0.2-1); Globulin 4.1 gm/dl (2.5-4.0); NT Pro B Type Natriuretic Pept 95 pg/ml (0-1800); Total Protein 7.7 gm/dl (6.4-8.2); Troponin I < 0.015 ng/ml (0-0.045)
[2018-06-20] MEDS ORDERED: NITROGLYCERIN 2% OINTMENT 30GM TUBE EXT STA (00:22)
[2018-06-20] MEDS ORDERED: FAMOTIDINE 20MG/5ML IV PUSH IV STA (00:22)
[2018-06-20 00:27] LABS: D Dimer 1300 ug/L FEU (0-500)
[2018-06-20] MEDS ORDERED: SODIUM CHLORIDE 0.9% 500 ML IV ONE (00:28)
[2018-06-20] MEDS ORDERED: OPTIRAY 320 125ml IV PRN (00:58)
[2018-06-20] MEDS ORDERED: ALUMINUM/MAGNESIUM SUSP 30 ML UDC PO STA (01:36)
[2018-06-20] MEDS ORDERED: ACETAMINOPHEN 1,000 MG/100 ML VIAL IV STA (01:36)
[2018-06-20] MEDS ORDERED: KETOROLAC TROMETHAMINE 15 MG/ML VIAL IV STA (02:45)
--- NOTE | 2018-06-20 04:47 | Emergency Department Note ---
Entered by Luz Atkins acting as a scribe for History of Present Illness General Chief complaint: Chest Pain Stated complaint: elevated bp, chest pain Time Seen by Provider: 06/19/18 23:28 Source: patient History of Present Illness Onset (ago): hour(s) (7.5) Location: chest Radiation: back and extremity (left arm) Pain Consistency: + other (worsening) Maximum Pain Intensity: 5 Quality: + sharp Relieved By: not by other (roll aides, apple cider vinegar) Associated symptoms: + denies other symptoms (numbness, tingling, dizziness, leg swelling, change in bowel movements, urinary symptoms) and + other (takes breath away, feeling flushed, lightheaded, elevated blood pressure); no nausea/vomiting (nausea) and no shortness of breath The patient is a 77 year old female who presents to the Emergency Room with complaints of worsening chest pain starting 7.5 hours ago. The patient states that the pain started out in the center of her chest. She states that she has a history of acid reflux and at first thought it was just that. She reports that she tried taking roll aides and drinking apple cider vinegar with no relief. She states that she realized it wasnt when the pain started moving into her left chest and then wrapped around to her back. She reports that it then started to move into her left upper arm. The patient notes that the pain initially came and went, but has become more constant and more intense. She notes that intermittently she has a sharp stabbing pain come through. She notes that when that happens, it takes her breath away. The patient complains of feeling flushed, lightheaded, and having an elevated blood pressure of 185/88 at home. The patient denies shortness of breath, nausea, numbness, tingling, dizziness, leg swelling, change in bowel movements, urinary symptoms, changes in activity, changes in medication, and ever having chest pain like his before. No overlying rash or sores. Patient denies any pain in the breast or any recent breast tissue abnormalities. Home Medications Home Medications Medication Instructions Recorded Confirmed Type Lactobacillus rhamnosus GG 1 cap PO BID 06/20/18 06/20/18 History [Culturelle] aspirin [Aspir-81] 81 mg PO DAILY 06/20/18 06/20/18 History calcium carbonate-vitamin D3 1 tab PO DAILY 06/20/18 06/20/18 History [Calcium 600 + D(3)] fluticasone propionate [Flovent 2 puff INHALATION BID PRN 06/20/18 06/20/18 History HFA] lisinopril-hydrochlorothiazide 1 tab PO DAILY 06/20/18 06/20/18 History nitroglycerin [Nitrostat] 0.4 mg SUBLINGUAL DIRECTED PRN 06/20/18 06/20/18 History sucralfate [Carafate] 1 g PO ACHS 06/20/18 06/20/18 History Allergies Allergy/AdvReac Type Severity Reaction Status Date / Time No Known Allergies Allergy Verified 06/20/18 00:23 Past Med/Surg History Medical History HTN (hypertension) (Chronic) Asthma (Chronic) GERD (gastroesophageal reflux disease) (Chronic) Surgical History H/O total knee replacement (Chronic) S/P dilatation and curettage (Chronic) H/O tubal ligation (Chronic) S/P lumbar spinal fusion (Chronic) S/P appendectomy (Chronic) Family History Other Heart attack Social History marital status: Current Living Situation: Spouse current occupational status: employed Feels Safe at Home: Yes Smoking Status: Never smoker Review of Systems See HPI for pertinent positives & negatives. and A total of 10 systems reviewed and were otherwise negative Physical Exam Vital Signs Vital Signs - 24 hr 06/19/18 23:15 06/20/18 00:16 06/20/18 00:58 Temperature 36.7 C Temperature Source Oral Sepsis Action Taken by Nursing No Action Required Pulse Rate 87 Pulse Rate [Right Finger] 80 83 Pulse Rhythm [Right Finger] Respiratory Rate 20 22 18 Respiratory Effort / Characteristics Non-Labored Respiratory Depth Normal Respiratory Pattern Blood Pressure 187/84 H Blood Pressure [Right Arm] 155/69 H 140/81 Blood Pressure Mean 118 Blood Pressure Mean [Right Arm] 97 100 Pulse Oximetry 97 96 93 Oxygen Delivery Method Room Air 06/20/18 01:59 06/20/18 02:50 06/20/18 04:00 Temperature Temperature Source Sepsis Action Taken by Nursing Pulse Rate Pulse Rate [Right Finger] 85 85 58 L Pulse Rhythm [Right Finger] Regular Respiratory Rate 22 22 16 Respiratory Effort / Characteristics Non-Labored Spontaneous Respiratory Depth Normal Respiratory Pattern Regular Blood Pressure Blood Pressure [Right Arm] 163/96 H 157/94 H 146/89 H Blood Pressure Mean Blood Pressure Mean [Right Arm] 118 115 108 Pulse Oximetry 93 97 Oxygen Delivery Method GENERAL: alert, well appearing, well nourished, no distress, non-toxic EYE EXAM: normal conjunctiva, PERRL and EOM's grossly intact OROPHARYNX: no exudate, no erythema, lips, buccal mucosa, and tongue normal and mucous membranes are moist NECK: supple, no nuchal rigidity, no adenopathy, non-tender LUNGS: Clear to auscultation. Normal chest wall mechanics HEART: no murmurs, S1 normal and S2 normal CHEST: No reproducible chest wall tenderness. No evidence of rash in the area of pain. ABDOMEN: abdomen soft, non-tender, normo-active bowel sounds, no masses, no rebound or guarding. BACK: Back is symmetrical on inspection and there is no deformity, no midline tenderness, no CVA tenderness. SKIN: no rashes and no bruising UPPER EXTREMITIES: upper extremities are grossly normal. FROM, nml pulses b/l. LOWER EXTREMITIES: No pitting edema. FROM, nml pulses b/l. NEURO EXAM: Normal sensorium, cranial nerves II-XII grossly intact, normal speech, no gross weakness of arms, no gross weakness of legs. Course 2333: The patient was evaluated in room A3. A complete history and physical exam was performed. 0144: I reevaluated the patient and she has no more pain in her arm or shoulder, but still has it in her anterior chest. I updated her on her test results thus far and we are going to get a repeat troponin. 0336: I reevaluated the patient and she is still having chest pain. I updated her on her test results. I discussed the treatment plan with her. She verbally agrees and understands. 0343: I discussed the patient's case with Dr. Mariposa Easton. He will evaluate for further management. Consultations Consultation #1: I discussed the patient's case with Dr. Mariposa Easton. He will evaluate for further management. Time: 03:43 Administered Medications Ioversol (Optiray 320 125ml) 125 ml IV ONCE PRN PRN Reason: Interaction Checking Stop: 06/24/18 00:57 Last Admin: 06/20/18 00:58 Dose: 94 ml Documented by: [id number] Discontinued Medications Al Hydrox/Mg Hydrox/Simethicone (Maalox) 15 ml PO NOW STA Stop: 06/20/18 01:37 Last Admin: 06/20/18 01:58 Dose: 15 ml Documented by: [id number] Famotidine (Pepcid 20mg Iv Push) 20 mg IV ONE STA Stop: 06/20/18 00:23 Last Admin: 06/20/18 00:31 Dose: 20 mg Documented by: [id number] Sodium Chloride (Nss) 500 mls @ 999 mls/hr IV .Q31M ONE Stop: 06/20/18 00:58 Last Infusion: 06/20/18 01:08 Dose: 0 mls/hr Documented by: [id number] Admin: 06/20/18 00:31 Dose: 999 mls/hr Documented by: [id number] Acetaminophen (Ofirmev) 1,000 mg in 100 mls @ 400 mls/hr IV NOW STA Stop: 06/20/18 01:50 Last Infusion: 06/20/18 02:14 Dose: 0 mls/hr Documented by: [id number] Admin: 06/20/18 01:58 Dose: 400 mls/hr Documented by: [id number] Ketorolac Tromethamine (Toradol) 15 mg IV NOW STA Stop: 06/20/18 02:46 Last Admin: 06/20/18 02:49 Dose: 15 mg Documented by: [id number] Nitroglycerin (Nitro-Bid 2%) 0.5 inch EXT NOW STA Stop: 06/20/18 00:23 Last Admin: 06/20/18 00:31 Dose: 0.5 inch Documented by: [id number] Medical Decision Making Differential Diagnosis Differential diagnosis: Etiologies such as shingles, musculoskeletal pain, pericarditis, myocarditis, cardiac ischemia, pericardial tamponade, pneumonia, pneumothorax, pleural effusion, hemothorax, pleurisy, aortic pathology, pulmonary embolism, intra- abdominal process, as well as others were considered. Medical Records Attestation: I reviewed the patient's medical records. Home Medications Current Medication List: was personally reviewed by me Laboratory Data Attestation: I reviewed the patient's lab results. Result diagrams: 06/19/18 23:23 06/19/18 23:23 Lab Results 06/19/18 06/19/18 06/19/18 Range/Units 23:23 23:23 23:23 WBC 6.82 (4.8-10.8) K/uL RBC 4.11 L (4.2-5.4) M/uL Hgb 12.8 (12.0-16.0) g/dL Hct 37.7 (37-47) % MCV 91.7 (80-100) fL MCH 31.1 (25-34) pg MCHC 34.0 (32-36) g/dL RDW Std Deviation 46.5 H (36.4-46.3) fL RDW Coeff of Gema 13.9 (11.5-14.5) % Plt Count 191 (130-400) K/uL MPV 9.3 (7.4-10.4) fL Immature Gran % (Auto) 0.1 % Neut % (Auto) 53.3 % Lymph % (Auto) 29.5 % [place] % (Auto) 10.6 % Eos % (Auto) 6.2 % Baso % (Auto) 0.3 % Immature Gran # (Auto) 0.01 (0.00-0.02) K/uL Neut # (Auto) 3.64 (1.4-6.5) K/uL Lymph # (Auto) 2.01 (1.2-3.4) K/uL [place] # (Auto) 0.72 H (0.11-0.59) K/uL Eos # (Auto) 0.42 (0-0.5) K/uL Baso # (Auto) 0.02 (0-0.2) K/uL D-Dimer 1300 H* (0-500) ug/L FEU Sodium 142 (136-145) mmol/L Potassium 3.3 L (3.5-5.1) mmol/L Chloride 107 (98-107) mmol/L Carbon Dioxide 32 (21-32) mmol/L Anion Gap 3.0 (3-11) BUN 19 H (7-18) mg/dl Creatinine 1.01 (0.6-1.2) mg/dl Est Cr Clr Drug Dosing 48.4 ml/min Est GFR ( Amer) 61.7 Est GFR (Non-Af Amer) 53.3 BUN/Creatinine Ratio 19.0 (10-20) Glucose 101 H (70-99) mg/dl Calcium 8.8 (8.5-10.1) mg/dl Magnesium 2.1 (1.8-2.4) mg/dl Total Bilirubin 0.4 (0.2-1) mg/dl AST 22 (15-37) U/L ALT 20 (12-78) U/L Alkaline Phosphatase 108 (45-117) U/L Troponin I < 0.015 (0-0.045) ng/ml NT-Pro-B Natriuret Pep 95 (0-1800) pg/ml Total Protein 7.7 (6.4-8.2) gm/dl Albumin 3.6 (3.4-5.0) gm/dl Globulin 4.1 H (2.5-4.0) gm/dl Albumin/Globulin Ratio 0.9 (0.9-2) Lipase 158 (73-393) U/L 06/20/18 Range/Units 01:57 WBC (4.8-10.8) K/uL RBC (4.2-5.4) M/uL Hgb (12.0-16.0) g/dL Hct (37-47) % MCV (80-100) fL MCH (25-34) pg MCHC (32-36) g/dL RDW Std Deviation (36.4-46.3) fL RDW Coeff of Gema (11.5-14.5) % Plt Count (130-400) K/uL MPV (7.4-10.4) fL Immature Gran % (Auto) % Neut % (Auto) % Lymph % (Auto) % [place] % (Auto) % Eos % (Auto) % Baso % (Auto) % Immature Gran # (Auto) (0.00-0.02) K/uL Neut # (Auto) (1.4-6.5) K/uL Lymph # (Auto) (1.2-3.4) K/uL [place] # (Auto) (0.11-0.59) K/uL Eos # (Auto) (0-0.5) K/uL Baso # (Auto) (0-0.2) K/uL D-Dimer (0-500) ug/L FEU Sodium (136-145) mmol/L Potassium (3.5-5.1) mmol/L Chloride (98-107) mmol/L Carbon Dioxide (21-32) mmol/L Anion Gap (3-11) BUN (7-18) mg/dl Creatinine (0.6-1.2) mg/dl Est Cr Clr Drug Dosing ml/min Est GFR ( Amer) Est GFR (Non-Af Amer) BUN/Creatinine Ratio (10-20) Glucose (70-99) mg/dl Calcium (8.5-10.1) mg/dl Magnesium (1.8-2.4) mg/dl Total Bilirubin (0.2-1) mg/dl AST (15-37) U/L ALT (12-78) U/L Alkaline Phosphatase (45-117) U/L Troponin I < 0.015 (0-0.045) ng/ml NT-Pro-B Natriuret Pep (0-1800) pg/ml Total Protein (6.4-8.2) gm/dl Albumin (3.4-5.0) gm/dl Globulin (2.5-4.0) gm/dl Albumin/Globulin Ratio (0.9-2) Lipase (73-393) U/L Imaging Data Attestation: I personally reviewed and interpreted this imaging study as follows: My Impression: CHEST X-RAY 1 VIEW: The results were interpreted by me. No cardiomegaly. No pleural effusions. No focal consolidations. No wide mediastinum. No acute pulmonary edema. Radiologist's Impression: Radiology results as stated below per my review and the radiologist's interpretation: CTA CHEST: No acute airspace opacities, pleural effusion, or pneumothorax. No evidence of pulmonary emboli. No aortic dissection or aneurysm. Cholelithiasis without cholecystitis. Radiologist: Supa Hoffmann MD Study ready at 01:00 and initial results transmitted at 01:22. ECG Data Attestation: I personally reviewed and interpreted this ECG as follows: Indication: chest pain Rate (beats per minute): 83 Rhythm: sinus rhythm Findings: + other (normal axis, normal intervals); no PAC, no PVC, no ST depression, no ST elevation, no acute ischemic change and no ectopy Blood Pressure Blood Pressure Findings: Elevated blood pressure Blood Pressure Disposition: further management by hospitalist MDM Narrative Patient here well-appearing despite complaints and hemodynamically stable throughout. Concern given patient's description of pain with accompanying symptoms as well as radiation. Symptoms improved here following medications. Labs were drawn and sent an IV placed. Initial set of labs reassuring with the exception of the d-dimer which prompted if follow-up CAT scan to the chest x-ray the patient already had. Patient CT angiography of the chest was reassuring. Patient's pain had improved and was no longer radiating although she still had persistent pain in the left chest. Patient was given multiple medications in an attempt to control this pain, however this was persistent. Due to persistence of pain despite reassuring evaluation with labs and imaging here, stable vital signs, I discussed with patient possible evaluation by hospitalist for additional inpatient management. She and family at bedside were in agreement with this plan. Patient is low risk overall based on heart score. No other evidence of acute vascular pathology or pulmonary pathology. I do not suspect PE. No evidence of accompanying rash to suggest herpes zoster. I do not suspect acute infectious etiology, tamponade or effusion. Case was discussed with hospitalist for additional evaluation and management. Patient and family were aware of all results in agreement with plan. I feel cholelithiasis noted on CT is likely an incidental finding and is unlikely to be contributing to her left chest pain. Impression & Plan Chest pain, Cholelithiasis, Hypertension Discharge Plan Visit Data Chief Complaint: Chest Pain Stated Complaint: elevated bp, chest pain ED Provider: Danita Vega Discharge Problem: Chest pain, Cholelithiasis, Hypertension Patient Disposition: Being Evaluated by Hospitalist Forms Stand Alone Forms: Call Back Authorization, [facility] Prescriptions Prescriptions: No Action sucralfate [Carafate] 1 gram Tablet 1 g PO ACHS RF: 0 aspirin [Aspir-81] 81 mg Tablet,Delayed Release (Dr/Ec) 81 mg PO DAILY RF: 0 nitroglycerin [Nitrostat] 0.4 mg Tablet, Sublingual 0.4 mg sublingual DIRECTED PRN (Reason: Chest Pain) RF: 0 lisinopril-hydrochlorothiazide 10-12.5 mg Tablet 1 tab PO DAILY RF: 0 Culturelle 10 billion cell Capsule 1 cap PO BID RF: 0 Flovent HFA 110 mcg/actuation Hfa Aerosol Inhaler 2 puff INHALATION BID PRN (Reason: Shortness Of Breath Or Wheezing) RF: 0 calcium carbonate-vitamin D3 [Calcium 600 + D(3)] 600 mg(1,500mg) -400 unit Tablet 1 tab PO DAILY RF: 0 Referrals Referrals: Ludwin Jackson MD [Primary Care Provider] - Discharge Problem: Chest pain Qualifiers: Chest pain type: unspecified Qualified Code(s): R07.9 - Chest pain, unspecified Cholelithiasis Qualifiers: Cholelithiasis location: gallbladder Cholecystitis presence: without cholecystitis Biliary obstruction: without biliary obstruction Qualified Code(s): K80.20 - Calculus of gallbladder without cholecystitis without obstruction Hypertension Qualifiers: Hypertension type: essential hypertension Qualified Code(s): I10 - Essential (primary) hypertension The scribe's documentation has been prepared under my direction and personally reviewed by me in its entirety. I confirm that the note above accurately reflects all work, treatment, procedures, and medical decision making performed by me.
[2018-06-20] MEDS ORDERED: ONDANSETRON INJ 2 MG/ML 2 ML VIAL IV PRN (05:50)
[2018-06-20] MEDS ORDERED: FLUTICASONE HFA 110MCG INHALER INH PRN (05:50)
[2018-06-20] MEDS ORDERED: NITROGLYCERIN SL 0.4 MG/TAB TAB SL PRN ×2 (05:50)
[2018-06-20] MEDS ORDERED: ACETAMINOPHEN 325 MG TAB PO PRN (05:50)
[2018-06-20] MEDS ORDERED: MoRPHine SULFATE 2 MG/ML CARP IV PRN (05:50)
--- NOTE | 2018-06-20 06:27 | XRay Report ---
XR chest 1V portable CLINICAL HISTORY: chest pain dyspnea COMPARISON STUDY: 07/03/2016 FINDINGS: The bones soft tissues and hemidiaphragms are normal. The cardiomediastinal silhouette is n ormal. The lungs are clear. The pulmonary vasculature is normal. IMPRESSION: Negative chest. The above report was generated using voice recognition software. It may contain grammatical, syntax or spelling errors. Electronically signed by: Satinder Beasley M.D. 06/20/2018 6:26 AM
--- NOTE | 2018-06-20 07:22 | CT Scan Report ---
CT angio chest PE protocol CT DOSE: 324.53 mGy.cm HISTORY: 77 years-old Female with PE. Acute left-sided chest and breast pain. TECHNIQUE: Multiple CTA images of the chest were obtained after the intravenous administration of 94 ml Optiray 320. Coronal and sagittal MIPS were obtained from the axial data set and were submitted f or review. All measurements were obtained according to NASCET criteria. A dose lowering technique wa s utilized adhering to the principles of ALARA. COMPARISON: Chest radiograph 07/03/2016. FINDINGS: CTA: Heart is normal in size without pericardial effusion. Thoracic aorta is normal in course and caliber without aneurysm or dissection. The pulmonary arterial tree is opacified to the level of the segmenta l branches. Segmental and subsegmental branches are not well seen secondary to respiratory motion art ifact. No filling defects are identified to suggest pulmonary thromboembolic disease. CT CHEST: No focal thyroid nodule. No adenopathy. No pneumothorax or pleural effusion. Mild subsegmental right greater than left bibasilar atelectasis. Mild biapical pleural-parenchymal scarring. No focal airspac e consolidation to suggest pneumonia. There are no suspicious pulmonary nodules or masses identified. 4 mm solid nodule of the posterior segment right upper lobe, image 178 series 4. Minimal subpleural tree-in-bud nodules are noted about the right upper lobe. Mild bilateral bronchial wall thickening. T he central airways appear patent. Cholelithiasis. No CT evidence of acute cholecystitis. Soft tissues and breast parenchyma appear unre markable. The bones appear to be intact. Degenerative changes of the shoulders and spine. IMPRESSION: 1. No acute aortic pathology or evidence of pulmonary thromboembolic disease. 2. Subtle tree-in-bud nodules of the right upper lobe suggest infectious or inflammatory bronchioliti s. Nodules within this distribution are seen measuring up to 4 mm. 3. No pleural effusion or adenopathy. 4. Cholelithiasis without CT evidence of acute cholecystitis. Please refer to below summary of Fleischner criteria recommendations for follow-up of incidental CT n odules (Hermelindo Lawrence, Guidelines for management of small pulmonary nodules detected on CT scans: A sta tement from the Fleischner Society, Radiology 237: [phone].) SOLID NODULES Multiple nodules size: <6 mm * Low risk patients: no routine follow-up * high risk patients: optional CT at 12 months Note: newly detected indeterminate nodule in persons 35 years of age or older. * Low risk patients: minimal or absent history of smoking and/or other known risk factors * high risk patients: history of smoking or of other known risk factors (e.g. first degree relative with lung cancer, or exposure to asbestos, radon, uranium) * if a nodule up to 8 mm is partly solid or is ground glass further follow-up is required after 24 m onths to exclude possible slow growing adenocarcinoma (BERTIN) The above report was generated using voice recognition software. It may contain grammatical, syntax o r spelling errors. Dictated: 06/20/2018 7:09 AM Transcribed: 06/20/2018 7:21 AM Ivanna [id number] [email or web address] Electronically signed by: Micheal Angeles M.D. 06/20/2018 7:51 AM
--- NOTE | 2018-06-20 08:01 | History and Physical Report ---
DATE OF ADMISSION: 06/20/2018 CHIEF COMPLAINT: Chest pain. HISTORY OF PRESENT ILLNESS: This is a 77-year-old female with past medical history significant for mild persistent asthma, hypertension and gastroesophageal reflux disease who presents with chest pain. The patient lives with her . After eating her dinner around 4:00 p.m., she was talking, then she suddenly noticed chest pain in the retrosternal region. Initially she thought it was heartburn, but the pain was traveling to the left side of her chest and to her back, very severe in nature. The patient states it was sometimes sharp and sometimes just pain, no associated symptoms. No shortness of breath. No nausea. No headache. No dizziness. The patient came to the Emergency Room. In the Emergency Room, she received nitro paste, famotidine, ketorolac, still she had some pain. As her D-dimer was elevated, CT of the chest was done which was unremarkable. Currently, complains of some pain but hemodynamically stable, alert and oriented. Denies any other complaints. No headache. No blurred vision. No earache. No runny nose. No sore throat. No difficulty swallowing. No shortness of breath. No cough. No fever. No chills. No nausea. No abdominal pain. Normal bowel and bladder movements. No hematuria. No hematochezia or melena. No swelling in the legs. No rash. Ambulates okay. Appetite is okay and sleeps okay. ALLERGIES: No known drug allergies. PAST MEDICAL HISTORY: As mentioned above. PAST SURGICAL HISTORY: Cataract surgeries, appendectomy, ligation of oviducts, esophagogastroduodenoscopy with biopsy, dilatation and curettage, total knee arthroplasty. MEDICATIONS: The patient is on lisinopril/hydrochlorothiazide 10/12.5 mg p.o. daily, Flovent 110 two puffs b.i.d., sucralfate 1 g at bedtime, probiotic 1 tablet daily, nitroglycerin 0.4 mg sublingual p.r.n., aspirin 81 mg p.o. daily and calcium plus D 1 tablet daily. FAMILY HISTORY: Significant for mother with arthritis and hypertension. Father has heart disorder. Paternal aunt has breast cancer. Brother has bladder cancer. SOCIAL HISTORY: , lives with her . No smoking. No alcohol. No drug use. REVIEW OF SYMPTOMS: As per HPI. Rest of review of systems is negative. PHYSICAL EXAMINATION: GENERAL: The patient is of moderate build, not in acute distress. VITAL SIGNS: Temperature 36.7, pulse is 50, respirations 16, blood pressure 146/89 and oxygen 97% on room air. HEENT: No pallor. No icterus. Pupils are equal, round and reactive to light. NECK: No JVD. No neck masses or carotid bruits. CARDIOVASCULAR: S1, S2 heard. Regular rate and rhythm. No murmur. No gallop. RESPIRATORY SYSTEM: Normal AP diameter. No accessory muscle use. No wheezing. No crackles. ABDOMEN: Soft. Bowel sounds present. Nontender. No distention. CENTRAL NERVOUS SYSTEM: Cranial nerves II through XII grossly intact. Nonfocal. EXTREMITIES: No edema. No erythema. LABORATORY DATA: WBC 6.8, hemoglobin 12.8, hematocrit 37.7 and platelets 191. D-dimer 1300, sodium 142, potassium 3.6, chloride 107, bicarbonate 32, BUN 19, creatinine 1.01, glucose 101, calcium 8.8, magnesium 2.1, total bilirubin 0.4, AST 22, ALT 20 and alkaline phosphatase 108. Troponin I less than 0.015. BNP 95. Lipase 158. CT of the chest was done, which was reported unremarkable. Chest x-ray unremarkable. Electrocardiogram, normal sinus rhythm with rate of 53, no acute ST changes seen. No significant change from previous electrocardiogram. ASSESSMENT AND PLAN: This is a 77-year-old female who presents with chest pain. 1. Chest pain, rule out acute coronary syndrome. She had a stress echocardiogram done in 06/2016 which was unremarkable. Risks factors are age, hypertension, family history. We will monitor on the tele floor. Serial cardiac enzymes, echocardiogram, consult cardiology for possible stress test. We will keep her n.p.o. for now. We will also place on nitro paste and continue home aspirin. 2. History of hypertension, on lisinopril/hydrochlorothiazide, we will monitor the blood pressure. She was placed on nitro paste also. 3. Gastroesophageal reflux disease, on sucralfate. 3. Mild persistent asthma, currently stable on Flovent. 4. Deep venous thrombosis prophylaxis, sequential compression devices for now. 5. Disposition: Observation on tele floor. Level 1 full code. Expect to discharge home and follow up with her family doctor. Addendum: possible pneumonitis on CT chest report.Starting on Rocephin and doxycycline. MTDD
[2018-06-20 08:02] LABS: Basophils # (auto) 0.02 K/uL (0-0.2); Basophils % (auto) 0.3 %; Eosinophils # (auto) 0.34 K/uL (0-0.5); Eosinophils % (auto) 5.9 %; Hematocrit (blood only) 34.8 % (37-47); Hemoglobin 11.6 g/dL (12.0-16.0); Immature Granulocytes # (auto) 0.01 K/uL (0.00-0.02); Immature Granulocytes % (auto) 0.2 %; Lymphocytes # (auto) 1.38 K/uL (1.2-3.4); Lymphocytes % (auto) 24.1 %; Mean Corpuscular Hgb Conc 33.3 g/dL (32-36); Mean Corpuscular Volume 92.8 fL (80-100); Mean Platelet Volume 8.9 fL (7.4-10.4); Monocytes # (auto) 0.58 K/uL (0.11-0.59); Monocytes % (auto) 10.1 %; Neutrophils % (auto) 59.4 %; Platelet Count 164 K/uL (130-400); RDW Coefficient of Variation 13.8 % (11.5-14.5); RDW Standard Deviation 47.1 fL (36.4-46.3); Red Blood Count 3.75 M/uL (4.2-5.4); White Blood Count 5.73 K/uL (4.8-10.8)
[2018-06-20] MEDS ORDERED: cefTRIAXone SODIUM 1,000 MG in DEXTROSE 5% 50 ML IV SCH (08:15)
[2018-06-20 08:19] LABS: BUN Creatinine Ratio 20.8 (10-20); Calcium 8.5 mg/dl (8.5-10.1); Creatinine Clr Calc Pharmacy 57.5 ml/min; Est GFR (African American) 76.1; Est GFR (Non-African American) 65.6; Magnesium 2.3 mg/dl (1.8-2.4); Potassium 3.6 mmol/L (3.5-5.1)
[2018-06-20] MEDS: SUCRALFATE 1 GM TAB PO SCH ×3 (08:42→17:17)
[2018-06-20] MEDS: NITROGLYCERIN 2% OINTMENT 30GM TUBE EXT SCH ×2 (08:58→13:39)
[2018-06-20] MEDS ORDERED: CALCIUM 600MG + VIT D 400 IU TAB PO SCH (09:00)
[2018-06-20] MEDS ORDERED: DOXYCYCLINE HYCLATE 100 MG in DEXTROSE 5% 100 ML IV SCH (09:00)
[2018-06-20] MEDS ORDERED: LISINOPRIL/HCTZ 10/12.5MG TAB PO SCH (09:00)
[2018-06-20] MEDS ORDERED: LACTOBACILLUS ACIDOPHILUS (FLORANEX) TAB PO SCH (09:00)
[2018-06-20] MEDS ORDERED: ASPIRIN 81 MG ECTAB PO SCH (09:00)
[2018-06-20] MEDS ORDERED: DOBUTamine HCL 12.5 MG/ML 20 ML VIAL IV ONE (09:18)
[2018-06-20] MEDS ORDERED: METOPROLOL TARTRATE 1 MG/ML VIAL IV ONE (09:18)
[2018-06-20] MEDS ORDERED: ATROPINE SULFATE 0.1 MG/ML 10ML SYR IV ONE (09:18)
--- NOTE | 2018-06-20 09:33 | Ultrasound Report ---
BILATERAL LOWER EXTREMITY VENOUS DOPPLER HISTORY: Acutely elevated d-dimer level elevated d dimer r/o dvt COMPARISON STUDY: CTA of the chest of same day, duplex venous Doppler study 11/05/2011 FINDINGS: There is normal compressibility, flow, and augmentation within the bilateral lower extremit y deep venous systems. IMPRESSION: No sonographic evidence of deep venous thrombosis within the right or left lower extremity. Electronically signed by: Micheal Angeles M.D. 06/20/2018 9:31 AM
--- NOTE | 2018-06-20 10:56 | Consultation Report ---
DATE OF CONSULTATION: 06/20/2018 INPATIENT CARDIOLOGY CONSULTATION CONSULTATION REQUESTED BY: Dr. Rincon. REASON FOR CONSULTATION: Chest pain. HISTORY OF PRESENT ILLNESS: Mrs. Nicolas is a very pleasant 77-year-old woman who presented to [facility] Emergency Department late in the evening of 06/19/2018 with complaints of chest pain. The patient states that after finishing Easter dinner yesterday with her family, she sat down to rest and suddenly developed chest pain. She is unable to qualify the pain. She states it was very intense in the middle of her chest. She states it started off feeling like her usual heartburn, but then started feeling almost like a spasm in the center of her chest. She states it did radiate around her left axilla into her left back, but she denied any other associated symptoms, specifically denied any associated shortness of breath, diaphoresis, nausea, palpitations, lightheadedness, dizziness, or syncope. Her daughter insisted she come into the Emergency Department. Upon arrival, EKG, cardiac enzymes were unremarkable and she was admitted to telemetry. She states that the pain has waxed and waned a little bit overnight, but has not been anywhere near as severe as when she first had it and she is not having any discomfort currently. She denies any previous similar episodes. PAST SURGICAL HISTORY: 1. Colonoscopies. 2. Upper endoscopies. 3. Cystoscopy. 4. Cataracts. 5. Total knee replacement. 6. Lumbar spinal fusion. 7. Appendectomy. MEDICAL ILLNESSES: 1. Hypertension. 2. Mild asthma. 3. GERD. 4. Degenerative joint disease. FAMILY HISTORY: Noncontributory given her age. SOCIAL HISTORY: Denies any alcohol, tobacco or recreational drug use. She is and lives at home with her . REVIEW OF SYSTEMS: As per HPI. All review of systems reviewed and negative at this time. ALLERGIES: No known drug allergies. MEDICATIONS AN OUTPATIENT: 1. Lisinopril/hydrochlorothiazide 10/12.5 mg daily. 2. Aspirin 81 mg daily. 3. Carafate 4 times a day. PHYSICAL EXAMINATION: VITALS: Temperature 36.4, pulse 72, respiratory rate 12, blood pressure 133/79. GENERAL: Awake, alert, oriented x3 in no acute distress. HEENT: Normocephalic, atraumatic. Pupils equal, round, reactive to light and accommodation. Extraocular muscles intact. Anicteric sclerae. Moist mucous membranes. NECK: No JVD, no bruit. CARDIOVASCULAR: Regular. Positive S4. Normal S1 and S2. No S3. No murmurs or rubs. PULMONARY: Clear to auscultation bilaterally. No rales, rhonchi, or wheezing. ABDOMEN: Bowel sounds x4, soft. No rebound, guarding, tenderness. No organomegaly. EXTREMITIES: No clubbing, cyanosis or edema. +2 pedal pulses bilaterally. SKIN: Warm and dry. TEST RESULTS: Troponin negative x3. A 12-lead EKG performed in the Emergency Department independently reviewed at this time shows normal sinus rhythm at 83 beats per minute, normal axis, normal intervals, no signs of ischemia. IMPRESSION: 1. Chest discomfort. 2. History of gastroesophageal reflux disease. 3. Hypertension. RECOMMENDATIONS: It was my pleasure to see Mrs. Nicolas in consultation today. From a cardiac standpoint, given her episode of chest discomfort, I do believe an ischemic evaluation is warranted at this point and she will undergo a dobutamine stress echocardiogram and should that come back unremarkable, then I would recommend further GI workup for likely GERD or possibly even esophageal spasm as a possible cause.
--- NOTE | 2018-06-20 11:30 | Hospitalist Progress Note ---
Date of Service June 20, 2018 Assessment & Plan (1) Chest pain: CHEST PAIN - ACS ruled out troponins negative Dobutamine stress test negative - Pulmonary Embolism ruled out CT angio negative - possible PUD? has history of GERD already on Sucralfate add Protonix BID will consult GI Right Upper Lobe Bronchiolitis no respiratory symptoms stop antibiotics Right Upper Lobe Lung Nodule outpatient repeat CT scan Elevated D dimer negative for PE and Lower Ext DVT Asthma stable HTN continue usual Lisinopril/HCTZ GERD start PPI with Sucralfate Deep venous thrombosis prophylaxis, sequential compression devices for now. Disposition: anticipate d/c home when medically stable Subjective ff up for chest/epigastric pain seen resting in bed, comfortable s/p dobutamine stress test- negative not in distress states epigastric/substernal pain - sharp, severe persisted through the night, improved around 8am no nausea, changes with BM no other symptoms Review of Systems Review of Systems: All systems reviewed & are unremarkable except as noted in HPI & below Physical Exam Physical Exam: General- oriented x 3, not in distress, speaks in sentences with no effort or accessory muscle use Eyes- anicteric Neck- no JVD Lungs- clear breath sounds bilaterally, no rales/wheezes Heart- normal rate, regular rhythm; no murmurs Abdomen- normal bowel sounds, nondistended, soft, nontender Extremities- no pretibial edema, no calf tenderness Neuro- alert, oriented x 3; no gross focal neurologic deficits Skin- warm & dry Results & Data Vital Signs (Past 12 Hours) Vital Signs Temp Pulse Pulse Pulse Resp BP BP 06/20/18 07:40 36.4 C L 72 16 133/79 06/20/18 05:51 36.6 C 75 18 148/93 H 06/20/18 05:03 85 14 162/99 H 06/20/18 04:00 58 L 16 146/89 H 06/20/18 02:50 85 22 157/94 H 06/20/18 01:59 85 22 163/96 H 06/20/18 00:58 83 18 140/81 06/20/18 00:16 80 22 155/69 H Pulse Ox 06/20/18 07:40 95 06/20/18 05:51 94 06/20/18 05:03 06/20/18 04:00 06/20/18 02:50 97 06/20/18 01:59 93 06/20/18 00:58 93 06/20/18 00:16 96 (1) Chest pain Chest pain type: unspecified Qualified Code(s): R07.9 - Chest pain, unspecified
--- NOTE | 2018-06-20 12:05 | Gastrointestinal Consultation ---
Date of Consultation June 20, 2018 Assessment & Plan (1) Chest pain: 77 year old female with admitted w/ chest pain w/ negative cardiac workup to date (troponin, EKG, CTA, duplex, echo) w/ return of epigastric pain post- prandially this AM. CT ABD/pevlis pending. DDX discussed. Inpatient evaluation w/ EGD was offered for tomorrow given regular diet today. She unsure how she wishes to proceed and notes she would like to be discharge w/ OP GI follow up if able from cardiac standpoint - Follow up CT scan - Recommend PPI BID - GERD dietary and lifestyle changes - If pt is agreeable or should symptoms return can keep NPO for EGD tomorrow - If she wished to have OP follow up she can have OP EGD at the time of her screening colonoscopy - OP EGD was ordered and routed to [facility] Thank you for allowing us to participate in the care of this patient. Please call with any acute changes, questions or concerns. Please see addendum below with additional recommendation from my supervising physician. Present on Admission?: Yes Supervising Physician Co-Signing Physician Notes I have seen and examined the patient and discussed the management with LATRICE Bonilla. 77 yo fm with a history of htn, gerd, asthma, on outpatient PPI, admitted thru the ER on 06/19/18 for chest pain. Describes it as acute onset, sharp intense, and unresponsive to ntg. EKG without changes, evaluated by cardiology with recommendations of a dobutamine stress test that returned normal. She received carafate and reports today having minimal pain though a few episodes post prandial. We discussed and offered and inpatient EGD however she would like to declined at this time. Exam significant for female in nad, perrla, lungs ctab, cv- rrr no mrg, abd soft nt nd +bs. Labs sig for an elevated d dimer. Negative CTA, negative lower extremity doppler, negative dobutamine stress echo. Her preference is for outpatient EGD. Outpatient Egd and she is due for a follow-up colonoscopy to be scheduled for her and she will be contacted with the day and time per [facility] schedulers with this. History of Present Illness Reason for Consultation: epigastric pain Requesting Physician: Adelaida Attending Physician: Keo Son MD History of Present Illness 77 year old female with history of asthma, hypertension, GERD who presented to the ED yesterday w/ CP. Notes this was constant, associated w/ breathlessness. No nausea, vomiting. Located in the sternum. Noted her BP at home was elevated, daughter brought to the ED. In the ED, troponin negative w/ negative EKG. D- dimer elevate, CTA negative w/ negative stress test. Was eating breakfast/lunch this AM w/ recurrent episode of epigastric pain, pressure. No nausea, vomiting. Does have GERD. No painful swallowing, dysphagia. No weight loss. Due for OP colonoscopy. No weight loss, fever, chills, CP, SOB. ETOH none Tobacco none NSAIDs none Troponin negative EKG negative Stress test negative Chest XR: negative CTA: No acute aortic pathology or evidence of pulmonary thromboembolic disease.. Subtle tree-in-bud nodules of the right upper lobe suggest infectious or inflammatory bronchiolitis. Nodules within this distribution are seen measuring up to 4 mm. No pleural effusion or adenopathy. Cholelithiasis without CT evidence of acute cholecystitis. Duplex: No sonographic evidence of deep venous thrombosis within the right or left lower extremity. CT ABD/Pelvis: pending Colonoscopy 2016: hyperplastic polyp and a serrated adenomatous polyp EGD 2013: Esophagus was mildly tortuous. There was a small sliding hiatal hernia.There was a protuberant fold with a small aphthous ulceration on the surface, in the antrum. This was biopsied.The remainder of the stomach was normal. Random biopsies done. The duodenum was normal. EGD 2007: Normal esophagus. Z-line regular, 35 cm from the incisors. Paraesophageal hiatus hernia.Normal stomach. This was biopsied. Normal examined duodenum. The examination was otherwise normal Allergies Allergy/AdvReac Type Severity Reaction Status Date / Time No Known Allergies Allergy Verified 06/20/18 00:23 Home Medications Home Medications Medication Instructions Recorded Confirmed Type Lactobacillus rhamnosus GG 1 cap PO BID 06/20/18 06/20/18 History [Culturelle] aspirin [Aspir-81] 81 mg PO DAILY 06/20/18 06/20/18 History calcium carbonate-vitamin D3 1 tab PO DAILY 06/20/18 06/20/18 History [Calcium 600 + D(3)] fluticasone propionate [Flovent 2 puff INHALATION BID PRN 06/20/18 06/20/18 History HFA] lisinopril-hydrochlorothiazide 1 tab PO DAILY 06/20/18 06/20/18 History nitroglycerin [Nitrostat] 0.4 mg SUBLINGUAL DIRECTED PRN 06/20/18 06/20/18 History sucralfate [Carafate] 1 g PO ACHS 06/20/18 06/20/18 History Patient History Medical History HTN (hypertension) (Chronic) Asthma (Chronic) GERD (gastroesophageal reflux disease) (Chronic) Surgical History H/O total knee replacement (Chronic) S/P dilatation and curettage (Chronic) H/O tubal ligation (Chronic) S/P lumbar spinal fusion (Chronic) S/P appendectomy (Chronic) Family History Other Heart attack Social History Preferred Language: Romanian Communication Ability: Effective Beliefs That Will Affect Care: None marital status: Current Living Situation: Alone current occupational status: employed Feels Safe at Home: Yes Safety Concerns: Feels Safe At This Time Smoking Status: Never smoker Hx Alcohol Use: No Hx Substance Use: No Review of Systems Constitutional: no fever, no chills, no fatigue and no weakness Respiratory: no cough, no dyspnea, no snoring and no wheezing Cardiovascular: no chest pain, no radiating jaw, neck or arm pain, no dyspnea, no dyspnea on exertion and no syncope Gastrointestinal: + abdominal pain and + heartburn; no belching, no bloating, no early satiety, no nausea, no vomiting, no hematemesis, no pain with swallowing, no dysphagia, no cramping, no excessive flatulence, no change in bowel habits, no change in stools, no constipation, no diarrhea/loose stools, no fecal incontinence, no constant urge to pass stools, no blood in stools and no melena Physical Exam Constitutional: WD/WN, vitals as above well developed and well nourished; no acute distress and not ill appearing Respiratory: normal respiratory effort, lungs clear to auscultation Cardiovascular: RRR, no murmur, no edema Rate/Rhythm: regular rate and regular rhythm Heart Sounds: no murmur Gastrointestinal (Abdomen): normal bowel sounds, soft, nontender, no hepatosplenomegaly Skin: no rashes, warm and dry Results & Data Vital Signs (Past 12 Hours) Vital Signs Temp Pulse Pulse Pulse Resp BP BP 06/20/18 11:42 36.6 C 66 16 136/75 06/20/18 07:40 36.4 C L 72 16 133/79 06/20/18 05:51 36.6 C 75 18 148/93 H 06/20/18 05:03 85 14 162/99 H 06/20/18 04:00 58 L 16 146/89 H 06/20/18 02:50 85 22 157/94 H 06/20/18 01:59 85 22 163/96 H 06/20/18 00:58 83 18 140/81 06/20/18 00:16 80 22 155/69 H Pulse Ox 06/20/18 11:42 93 06/20/18 07:40 95 06/20/18 05:51 94 06/20/18 05:03 06/20/18 04:00 06/20/18 02:50 97 06/20/18 01:59 93 06/20/18 00:58 93 06/20/18 00:16 96 Laboratory Results 06/20/18 06/20/18 06/20/18 Range/Units 07:53 07:53 07:53 WBC 5.73 (4.8-10.8) K/uL RBC 3.75 L (4.2-5.4) M/uL Hgb 11.6 L (12.0-16.0) g/dL Hct 34.8 L (37-47) % MCV 92.8 (80-100) fL MCH 30.9 (25-34) pg MCHC 33.3 (32-36) g/dL RDW Std Deviation 47.1 H (36.4-46.3) fL RDW Coeff of Gema 13.8 (11.5-14.5) % Plt Count 164 (130-400) K/uL MPV 8.9 (7.4-10.4) fL Immature Gran % (Auto) 0.2 % Neut % (Auto) 59.4 % Lymph % (Auto) 24.1 % [place] % (Auto) 10.1 % Eos % (Auto) 5.9 % Baso % (Auto) 0.3 % Immature Gran # (Auto) 0.01 (0.00-0.02) K/uL Neut # (Auto) 3.40 (1.4-6.5) K/uL Lymph # (Auto) 1.38 (1.2-3.4) K/uL [place] # (Auto) 0.58 (0.11-0.59) K/uL Eos # (Auto) 0.34 (0-0.5) K/uL Baso # (Auto) 0.02 (0-0.2) K/uL D-Dimer (0-500) ug/L FEU Sodium 144 (136-145) mmol/L Potassium 3.6 (3.5-5.1) mmol/L Chloride 110 H (98-107) mmol/L Carbon Dioxide 28 (21-32) mmol/L Anion Gap 6.0 (3-11) BUN 18 (7-18) mg/dl Creatinine 0.85 (0.6-1.2) mg/dl Est Cr Clr Drug Dosing 57.5 ml/min Est GFR ( Amer) 76.1 Est GFR (Non-Af Amer) 65.6 BUN/Creatinine Ratio 20.8 H (10-20) Glucose 94 (70-99) mg/dl Calcium 8.5 (8.5-10.1) mg/dl Magnesium 2.3 (1.8-2.4) mg/dl Total Bilirubin (0.2-1) mg/dl AST (15-37) U/L ALT (12-78) U/L Alkaline Phosphatase (45-117) U/L Troponin I < 0.015 (0-0.045) ng/ml NT-Pro-B Natriuret Pep (0-1800) pg/ml Total Protein (6.4-8.2) gm/dl Albumin (3.4-5.0) gm/dl Globulin (2.5-4.0) gm/dl Albumin/Globulin Ratio (0.9-2) Lipase (73-393) U/L 06/20/18 06/19/18 06/19/18 Range/Units 01:57 23:23 23:23 WBC (4.8-10.8) K/uL RBC (4.2-5.4) M/uL Hgb (12.0-16.0) g/dL Hct (37-47) % MCV (80-100) fL MCH (25-34) pg MCHC (32-36) g/dL RDW Std Deviation (36.4-46.3) fL RDW Coeff of Gema (11.5-14.5) % Plt Count (130-400) K/uL MPV (7.4-10.4) fL Immature Gran % (Auto) % Neut % (Auto) % Lymph % (Auto) % [place] % (Auto) % Eos % (Auto) % Baso % (Auto) % Immature Gran # (Auto) (0.00-0.02) K/uL Neut # (Auto) (1.4-6.5) K/uL Lymph # (Auto) (1.2-3.4) K/uL [place] # (Auto) (0.11-0.59) K/uL Eos # (Auto) (0-0.5) K/uL Baso # (Auto) (0-0.2) K/uL D-Dimer 1300 H* (0-500) ug/L FEU Sodium 142 (136-145) mmol/L Potassium 3.3 L (3.5-5.1) mmol/L Chloride 107 (98-107) mmol/L Carbon Dioxide 32 (21-32) mmol/L Anion Gap 3.0 (3-11) BUN 19 H (7-18) mg/dl Creatinine 1.01 (0.6-1.2) mg/dl Est Cr Clr Drug Dosing 48.4 ml/min Est GFR ( Amer) 61.7 Est GFR (Non-Af Amer) 53.3 BUN/Creatinine Ratio 19.0 (10-20) Glucose 101 H (70-99) mg/dl Calcium 8.8 (8.5-10.1) mg/dl Magnesium 2.1 (1.8-2.4) mg/dl Total Bilirubin 0.4 (0.2-1) mg/dl AST 22 (15-37) U/L ALT 20 (12-78) U/L Alkaline Phosphatase 108 (45-117) U/L Troponin I < 0.015 < 0.015 (0-0.045) ng/ml NT-Pro-B Natriuret Pep 95 (0-1800) pg/ml Total Protein 7.7 (6.4-8.2) gm/dl Albumin 3.6 (3.4-5.0) gm/dl Globulin 4.1 H (2.5-4.0) gm/dl Albumin/Globulin Ratio 0.9 (0.9-2) Lipase 158 (73-393) U/L 06/19/18 Range/Units 23:23 WBC 6.82 (4.8-10.8) K/uL RBC 4.11 L (4.2-5.4) M/uL Hgb 12.8 (12.0-16.0) g/dL Hct 37.7 (37-47) % MCV 91.7 (80-100) fL MCH 31.1 (25-34) pg MCHC 34.0 (32-36) g/dL RDW Std Deviation 46.5 H (36.4-46.3) fL RDW Coeff of Gema 13.9 (11.5-14.5) % Plt Count 191 (130-400) K/uL MPV 9.3 (7.4-10.4) fL Immature Gran % (Auto) 0.1 % Neut % (Auto) 53.3 % Lymph % (Auto) 29.5 % [place] % (Auto) 10.6 % Eos % (Auto) 6.2 % Baso % (Auto) 0.3 % Immature Gran # (Auto) 0.01 (0.00-0.02) K/uL Neut # (Auto) 3.64 (1.4-6.5) K/uL Lymph # (Auto) 2.01 (1.2-3.4) K/uL [place] # (Auto) 0.72 H (0.11-0.59) K/uL Eos # (Auto) 0.42 (0-0.5) K/uL Baso # (Auto) 0.02 (0-0.2) K/uL D-Dimer (0-500) ug/L FEU Sodium (136-145) mmol/L Potassium (3.5-5.1) mmol/L Chloride (98-107) mmol/L Carbon Dioxide (21-32) mmol/L Anion Gap (3-11) BUN (7-18) mg/dl Creatinine (0.6-1.2) mg/dl Est Cr Clr Drug Dosing ml/min Est GFR ( Amer) Est GFR (Non-Af Amer) BUN/Creatinine Ratio (10-20) Glucose (70-99) mg/dl Calcium (8.5-10.1) mg/dl Magnesium (1.8-2.4) mg/dl Total Bilirubin (0.2-1) mg/dl AST (15-37) U/L ALT (12-78) U/L Alkaline Phosphatase (45-117) U/L Troponin I (0-0.045) ng/ml NT-Pro-B Natriuret Pep (0-1800) pg/ml Total Protein (6.4-8.2) gm/dl Albumin (3.4-5.0) gm/dl Globulin (2.5-4.0) gm/dl Albumin/Globulin Ratio (0.9-2) Lipase (73-393) U/L
--- NOTE | 2018-06-20 12:14 | CT Scan Report ---
ABDOMEN AND PELVIS CT WITHOUT CONTRAST CT DOSE: 643.27 mGy.cm HISTORY: Acute epigastric abdominal pain. epigastric pain TECHNIQUE: Multiaxial CT images of the abdomen and pelvis were performed without contrast. A dose lo wering technique was utilized adhering to the principles of ALARA. COMPARISON STUDY: CTA chest of same day at 12:32 AM. FINDINGS: Subsegmental bibasilar opacities suggest probable atelectasis. No pneumatosis or pneumoperitoneum. Mi tral annular calcifications are noted. Evaluation of the solid abdominal organs is limited without the use of IV contrast. Within the limita tions of this study the liver, spleen, pancreas and adrenal glands are unremarkable. Mild layering ch olelithiasis without CT evidence of acute cholecystitis. No choledocholithiasis or biliary ductal dil ation identified. Retained contrast noted within the bilateral renal collecting systems and urinary bladder lumen. Mult ifocal cortical scarring and parenchymal thinning noted about the right greater than left kidneys. Mu ltiple renal sinus cysts are present bilaterally. No hydronephrosis. Uterus and left adnexa are unrem arkable. Indeterminate 2.0 x 1.5 cm cystic focus of the right adnexa. The aorta and IVC are unremarka ble. There is no adenopathy. Hyperdense material noted within the dependent gastric lumen, possibly ingested medicinal material. T here is no small bowel obstruction or focal bowel wall thickening identified. Moderate volume of form ed stool throughout the colon suggests constipation. Terminal ileum is unremarkable. The appendix is not seen and likely surgically absent. No ascites or mesenteric inflammation. Soft tissues and breast parenchyma appear unremarkable. Bones appear to be intact. Degenerative changes of the spine, pelvis and hips. Discectomy changes wit h posterior interbody cher and screw fusion noted at L4-L5. There is no evidence of hardware fracture or loosening. 4 mm anterolisthesis L5 on S1 with associated severe facet arthropathy seen at this int erspace. Advanced degenerative changes at the pubic symphysis with associated pubic symphysis pannus and chondrocalcinosis. IMPRESSION: 1. No acute intra-abdominal or intrapelvic abnormality identified. 2. Multifocal cortical scarring and parenchymal thinning of the right greater than left kidneys with bilateral renal sinus cysts. 3. Cholelithiasis without CT evidence of acute cholecystitis. 4. Additional findings as above. Dictated: 06/20/2018 11:57 AM Transcribed: 06/20/2018 12:14 PM Ivanna [id number] [email or web address] Electronically signed by: Micheal Angeles M.D. 06/20/2018 12:29 PM
[2018-06-20] MEDS ORDERED: PANTOprazole 40 MG TAB PO STA (17:34)
--- NOTE | 2018-06-20 18:51 | Discharge Summary ---
Date of Service June 20, 2018 Admission HPI Per Admitting Provider HISTORY OF PRESENT ILLNESS: This is a 77-year-old female with past medical history significant for mild persistent asthma, hypertension and gastroesophageal reflux disease who presents with chest pain. The patient lives with her . After eating her dinner around 4:00 p.m., she was talking, then she suddenly noticed chest pain in the retrosternal region. Initially she thought it was heartburn, but the pain was traveling to the left side of her chest and to her back, very severe in nature. The patient states it was sometimes sharp and sometimes just pain, no associated symptoms. No shortness of breath. No nausea. No headache. No dizziness. The patient came to the Emergency Room. In the Emergency Room, she received nitro paste, famotidine, ketorolac, still she had some pain. As her D-dimer was elevated, CT of the chest was done which was unremarkable. Currently, complains of some pain but hemodynamically stable, alert and oriented. Denies any other complaints. No headache. No blurred vision. No earache. No runny nose. No sore throat. No difficulty swallowing. No shortness of breath. No cough. No fever. No chills. No nausea. No abdominal pain. Normal bowel and bladder movements. No hematuria. No hematochezia or melena. No swelling in the legs. No rash. Ambulates okay. Appetite is okay and sleeps okay. Admission Exam Per Admitting Provider PHYSICAL EXAMINATION: GENERAL: The patient is of moderate build, not in acute distress. VITAL SIGNS: Temperature 36.7, pulse is 50, respirations 16, blood pressure 146/89 and oxygen 97% on room air. HEENT: No pallor. No icterus. Pupils are equal, round and reactive to light. NECK: No JVD. No neck masses or carotid bruits. CARDIOVASCULAR: S1, S2 heard. Regular rate and rhythm. No murmur. No gallop. RESPIRATORY SYSTEM: Normal AP diameter. No accessory muscle use. No wheezing. No crackles. ABDOMEN: Soft. Bowel sounds present. Nontender. No distention. CENTRAL NERVOUS SYSTEM: Cranial nerves II through XII grossly intact. Nonfocal. EXTREMITIES: No edema. No erythema. Principal Diagnosis CHEST PAIN, ACS RULED OUT Discharge Exam Physical Exam: General- oriented x 3, not in distress, speaks in sentences with no effort or accessory muscle use Eyes- anicteric Neck- no JVD Lungs- clear breath sounds bilaterally, no rales/wheezes Heart- normal rate, regular rhythm; no murmurs Abdomen- normal bowel sounds, nondistended, soft, nontender Extremities- no pretibial edema, no calf tenderness Neuro- alert, oriented x 3; no gross focal neurologic deficits Skin- warm & dry Discharge Data Allergies Allergy/AdvReac Type Severity Reaction Status Date / Time No Known Allergies Allergy Verified 06/20/18 00:23 Consultations 06/20/18 03:42 ED Decision to Admit Stat 06/20/18 08:00 Consult Cardiology Routine 06/20/18 11:23 Consult Gastroenterology Routine Ordered Studies 06/20/18 00:28 CT angio chest PE protocol Urgent FINDINGS: CTA: Heart is normal in size without pericardial effusion. Thoracic aorta is normal in course and caliber without aneurysm or dissection. The pulmonary arterial tree is opacified to the level of the segmental branches. Segmental and subsegmental branches are not well seen secondary to respiratory motion artifact. No filling defects are identified to suggest pulmonary thromboembolic disease. CT CHEST: No focal thyroid nodule. No adenopathy. No pneumothorax or pleural effusion. Mild subsegmental right greater than left bibasilar atelectasis. Mild biapical pleural-parenchymal scarring. No focal airspace consolidation to suggest pneumonia. There are no suspicious pulmonary nodules or masses identified. 4 mm solid nodule of the posterior segment right upper lobe, image 178 series 4. Minimal subpleural tree-in-bud nodules are noted about the right upper lobe. Mil d bilateral bronchial wall thickening. The central airways appear patent. Cholelithiasis. No CT evidence of acute cholecystitis. Soft tissues and breast parenchyma appear unremarkable. The bones appear to be intact. Degenerative changes of the shoulders and spine. IMPRESSION: 1. No acute aortic pathology or evidence of pulmonary thromboembolic disease. 2. Subtle tree-in-bud nodules of the right upper lobe suggest infectious or inflammatory bronchiolitis. Nodules within this distribution are seen measuring up to 4 mm. 3. No pleural effusion or adenopathy. 4. Cholelithiasis without CT evidence of acute cholecystitis. Please refer to below summary of Fleischner criteria recommendations for follow- up of incidental CT nodules (Hermelindo Lawrence, Guidelines for management of small pulmonary nodules detected on CT scans: A statement from the Fleischner Society, Radiology 237: [phone].) SOLID NODULES Multiple nodules size: <6 mm * Low risk patients: no routine follow-up * high risk patients: optional CT at 12 months Note: newly detected indeterminate nodule in persons 35 years of age or older. * Low risk patients: minimal or absent history of smoking and/or other known risk factors * high risk patients: history of smoking or of other known risk factors (e.g. first degree relative with lung cancer, or exposure to asbestos, radon, uranium) * if a nodule up to 8 mm is partly solid or is ground glass further follow-up is required after 24 months to exclude possible slow growing adenocarcinoma (BERTIN) 06/20/18 08:17 US venous doppler LE BI Stat No DVT 06/20/18 11:22 CT abd pelvis wo con Routine Evaluation of the solid abdominal organs is limited without the use of IV contrast. Within the limitations of this study the liver, spleen, pancreas and adrenal glands are unremarkable. Mild layering cholelithiasis without CT evidence of acute cholecystitis. No choledocholithiasis or biliary ductal dilation identified. Retained contrast noted within the bilateral renal collecting systems and urinary bladder lumen. Multifocal cortical scarring and parenchymal thinning noted about the right greater than left kidneys. Multiple renal sinus cysts are present bilaterally. No hydronephrosis. Uterus and left adnexa are unremarkable. Indeterminate 2.0 x 1.5 cm cystic focus of the right adnexa. The aorta and IVC are unremarkable. There is no adenopathy. Hyperdense material noted within the dependent gastric lumen, possibly ingested medicinal material. There is no small bowel obstruction or focal bowel wall thickening identified. Moderate volume of formed stool throughout the colon suggests constipation. Terminal ileum is unremarkable. The appendix is not seen and likely surgically absent. No ascites or mesenteric inflammation. Soft tissues and breast parenchyma appear unremarkable. Bones appear to be intact. Degenerative changes of the spine, pelvis and hips. Discectomy changes with posterior interbody cher and screw fusion noted at L4-L5. There is no evidence of hardware fracture or loosening. 4 mm anterolisthesis L5 on S1 with associated severe facet arthropathy seen at this interspace. Advanced degenerative changes at the pubic symphysis with associated pubic symphysis pannus and chondrocalcinosis. IMPRESSION: 1. No acute intra-abdominal or intrapelvic abnormality identified. 2. Multifocal cortical scarring and parenchymal thinning of the right greater than left kidneys with bilateral renal sinus cysts. 3. Cholelithiasis without CT evidence of acute cholecystitis. 4. Additional findings as above. Hospital Course (1) Chest pain: CHEST PAIN - ACS ruled out troponins negative Dobutamine stress test negative - Pulmonary Embolism ruled out CT angio negative - possible PUD? has history of GERD CT abomen: 1. No acute intra-abdominal or intrapelvic abnormality identified. 2. Multifocal cortical scarring and parenchymal thinning of the right greater than left kidneys with bilateral renal sinus cysts. Cholelithiasis without CT evidence of acute cholecystitis. 4. Additional findings as above. already on Sucralfate added Protonix BID GI consulted: recommend outpatient EGD and Colonoscopy Right Upper Lobe Bronchiolitis no respiratory symptoms stop antibiotics Right Upper Lobe Lung Nodule 4 mm solid nodule of the posterior segment right upper lobe full CT report noted in procedure section above -- repeat CT scan and follow up as outpatient Abnormal CT findings Multifocal cortical scarring and parenchymal thinning of the right greater than left kidneys with bilateral renal sinus cysts. Indeterminate 2.0 x 1.5 cm cystic focus of the right adnexa full CT abdomen pelvis report noted in the procedure section -- Further work-up as an outpatient Elevated D dimer negative for PE and Lower Ext DVT Asthma stable HTN continue usual Lisinopril/HCTZ GERD PPI added, continue Sucralfate Deep venous thrombosis prophylaxis, sequential compression devices for now. Disposition: dc home ff up with PCP as outlined in dc instructions ff up with GI for EGD and Colonoscopy Total Time Total Time Spent Total Time Spent (In Minutes): 45minutes Discharge Plan Discharge Items Patient Disposition: Home - Self-Care Reason For Visit: echest pain Discharge Diagnosis: CHEST PAIN Condition: Good Discharge Goals: Diagnostic testing and Therapeutic intervention Activity: Resume your previous activity Non-emergency contact: Primary Care Provider Call non-emergency contact if: you have any medication questions, your symptoms worsen, your pain is not controlled and you have a fever Follow-up/Referrals: Ludwin Jackson MD [Primary Care Provider] - 06/27/18 10:45 am Diet: Heart Healthy Add Provider Instructions: PLEASE FOLLOW UP WITH [facility] FOR AN APPOINTMENT FOR UPPER GI ENDOSCOPY. TEL NO. [phone] AVOID ACIDIC FOOD/DRINKS, CAFFEINATED/ CARBONATED BEVERAGES, SPICY FOOD. DO NOT TAKE MEDICATIONS CALLED NSAIDS: IBUPROFEN, NAPROXEN, ETC. Prescriptions: New pantoprazole [Protonix] 40 mg tablet,delayed release (DR/EC) 40 mg PO BID 14 Days Qty: 28 RF: 1 lisinopril 10 mg tablet 10 mg PO DAILY Qty: 30 RF: 1 Continued sucralfate [Carafate] 1 gram Tablet 1 g PO ACHS RF: 0 aspirin [Aspir-81] 81 mg Tablet,Delayed Release (Dr/Ec) 81 mg PO DAILY RF: 0 nitroglycerin [Nitrostat] 0.4 mg Tablet, Sublingual 0.4 mg sublingual DIRECTED PRN (Reason: Chest Pain) RF: 0 Culturelle 10 billion cell Capsule 1 cap PO BID RF: 0 Flovent HFA 110 mcg/actuation Hfa Aerosol Inhaler 2 puff INHALATION BID PRN (Reason: Shortness Of Breath Or Wheezing) RF: 0 calcium carbonate-vitamin D3 [Calcium 600 + D(3)] 600 mg(1,500mg) -400 unit Tablet 1 tab PO DAILY RF: 0 Discontinued lisinopril-hydrochlorothiazide 10-12.5 mg Tablet 1 tab PO DAILY RF: 0 Stand-Alone Forms: Call Back Authorization, [facility] Discharge Orders: Discharge Order (Routine); Ordered 06/20/18 Ordered By: Keo Son Admission Data Admit Date/Time: 06/20/18 04:28 Attending Provider: Keo Son Admit Provider: Andrews Rincon Primary Care Provider: Ludwin Jackson Other Providers: Andrews Rincon ; Corky Casanova ; Antoni Madrid ; Marc Sweeney ; Shaji Hill ; Rajinder Leonard ; Satinder Hahn ; Magdalena Rodriguez ; Evelyn Galan ; Nora Girard ; Francisco Javier Beavers ; Lisa Canseco ; Jv Reyes ; Malcolm Kendall ; Miriam Bay ; Nicki Gómez ; Antonio Huffman ; Ravindra Huerta ; Samia Elkins ; Ashly Cheema ; Macrina Ceron ; Anupama,Peter Wing Service: Telemetry Other Interventions: Discharge Summary Assessment (RN) Last Done: 06/20/18 17:50 DC Date/Time DO NOT enter until pt leaves facility: 06/20/18 18:07
== END 2018-06-20 18:07 | disposition home or self-care (01) ==
LOC: ED 23:13 → 2E 23:13

== ENCOUNTER 2022-02-08 20:09 | Observation (INO) ==
[2022-02-08 20:57] LABS: Basophils # (auto) 0.04 K/uL (0-0.2); Basophils % (auto) 0.5 %; Eosinophils # (auto) 0.29 K/uL (0-0.50); Eosinophils % (auto) 3.4 %; Hematocrit (blood only) 35.3 % (34.1-44.9); Hemoglobin 11.8 g/dl (12.0-16.0); Immature Granulocytes # (auto) 0.02 K/uL (0.00-0.02); Immature Granulocytes % (auto) 0.2 %; Lymphocytes # (auto) 1.86 K/uL (1.2-3.4); Lymphocytes % (auto) 21.9 %; Mean Corpuscular Hemoglobin 30.7 pg (25.0-34.0); Mean Corpuscular Hgb Conc 33.4 g/dL (32.0-36.0); Mean Corpuscular Volume 91.9 fL (80.0-100.0); Monocytes # (auto) 0.86 K/uL (0.24-0.82); Monocytes % (auto) 10.1 %; Neutrophils # (auto) 5.41 K/uL (1.4-6.5); Neutrophils % (auto) 63.9 %; Platelet Count 186 K/uL (130-400); RDW Coefficient of Variation 13.8 % (11.5-14.5); RDW Standard Deviation 46.3 fL (36.4-46.3); Red Blood Count 3.84 M/uL (3.93-5.22); White Blood Count 8.48 K/ul (4.8-10.8)
[2022-02-08 21:21] LABS: Alanine Aminotransferase 12 U/L (7-52); Albumin Level 3.4 gm/dl (3.4-5.0); Alkaline Phosphatase 80 U/L (34-104); Anion Gap 7 (3-11); BUN Creatinine Ratio 20.3 (10-20); Bilirubin,Total 0.4 mg/dl (0.2-1.0); Blood Urea Nitrogen 15 mg/dl (6-23); Calcium 8.4 mg/dl (8.5-10.1); Carbon Dioxide 28 mmol/L (21-32); Chloride 102 mmol/L (98-107); Creatinine Clr Calc Pharmacy 61.6 ml/min; Est GFR (African American) 87.4 ml/min; Est GFR (Non-African American) 75.4 ml/min; Globulin 3.3 gm/dl (2.5-4.0); Glucose 100 mg/dl (70-99(Fasting)); Sodium 137 mmol/L (136-145); Total Protein 6.7 gm/dl (6.0-8.3)
[2022-02-08 21:34] LABS: Partial Thromboplastin Ratio 0.9; Partial Thromboplastin Time 25.6 Seconds (21.0-31.0); Prothrombin Time 10.7 Seconds (9.0-12.0)
--- NOTE | 2022-02-08 21:46 | Emergency Department Note ---
History of Present Illness General Chief complaint: Neck Injury/Pain Stated complaint: NECK PAIN, BACK PAIN Time Seen by Provider: 02/08/22 21:32 History of Present Illness Maximum Pain Intensity: 4 This is an 81-year-old female presenting to the emergency department for evaluation of vague chest, back, and neck pain over the past day. The patient states that throughout the day she has had these intermittent episodes of squeezing pain in her left side chest. These seem to be somewhat lateral and will occasionally cause her some neck pain. The pain may worsen with certain position however, and different coughing also seems to exacerbate things. The patient has had some URI symptoms recently and just completed Augmentin today. The patient has not had distinct fever today. She rates her discomfort a 4/10 at baseline with episodic increases to 10/10. She does not endorse shortness of breath or abdominal pain. She did have 2 episodes of vomiting earlier today, and is unsure if this is related. Home Medications Medication Instructions Recorded Confirmed Type calcium carbonate 600 mg-vitamin 1 tab PO DAILY 06/20/18 02/08/22 History D3 10 mcg (400 unit) tablet (Calcium 600 + D(3)) fluticasone propionate 110 2 puff inhalation BID 06/20/18 02/08/22 History mcg/actuation HFA aerosol inhaler (Flovent HFA) lisinopril 10 1 tab PO DAILY 10/21/19 02/08/22 History mg-hydrochlorothiazide 12.5 mg tablet omeprazole 20 mg capsule,delayed 20 mg PO QAM 10/21/19 02/08/22 History release Lactobacillus acidophilus 10 10,000 mmu cells PO DAILY 02/08/22 02/08/22 History billion cell capsule (Probiotic) clotrimazole 1 % topical cream 1 applic topical BID PRN SKIN RASH 02/08/22 02/08/22 History cyanocobalamin (vitamin B-12) 1,000 mcg PO DAILY 02/08/22 02/08/22 History 1,000 mcg tablet (Vitamin B-12) Allergies Allergy/AdvReac Type Severity Reaction Status Date / Time No Known Allergies Allergy Verified 02/08/22 22:24 Past Med/Surg History Medical History (Updated 02/09/22 @ 03:52 by Antoni Menjivar PA-C) Asthma GERD (gastroesophageal reflux disease) HTN (hypertension) Surgical History H/O total knee replacement H/O tubal ligation S/P appendectomy S/P dilatation and curettage S/P lumbar spinal fusion Family History Other Myocardial infarction Social History Smoking Status: Never smoker Hx Alcohol Use: No Hx Substance Use: No Preferred Language: Georgian Communication Ability: Effective Beliefs That Will Affect Care: None marital status: Current Living Situation: Alone current occupational status: employed Feels Safe at Home: Yes Assistive Devices: None Review of Systems A total of 10 systems reviewed and were otherwise negative Physical Exam Vital Signs Vital Signs - 24 hr 02/08/22 20:17 02/08/22 21:02 02/08/22 21:02 Temperature 36.9 C Temperature Source Temporal Artery Scan Pulse Rate 97 H 88 Pulse Rate [Finger] 88 Respiratory Rate 16 18 Respiratory Effort / Characteristics Non-Labored Spontaneous Non-Labored Spontaneous Respiratory Depth Normal Normal Blood Pressure 160/77 H Blood Pressure [Right Arm] 160/88 H Blood Pressure Mean 104 Blood Pressure Mean [Right Arm] 112 Pulse Oximetry 96 98 99 Oxygen Delivery Method Room Air Room Air Room Air Sepsis Recent Fever Within 48 Hours No Sepsis New/Unexplained Change in Mental Status No Sepsis Action Taken by Nursing No Action Required 02/08/22 23:50 02/09/22 01:00 Temperature Temperature Source Pulse Rate Pulse Rate [Finger] 78 77 Respiratory Rate 16 16 Respiratory Effort / Characteristics Non-Labored Spontaneous Respiratory Depth Normal Blood Pressure Blood Pressure [Right Arm] 135/64 116/63 Blood Pressure Mean Blood Pressure Mean [Right Arm] 87 80 Pulse Oximetry 98 94 Oxygen Delivery Method Room Air Room Air Sepsis Recent Fever Within 48 Hours Sepsis New/Unexplained Change in Mental Status Sepsis Action Taken by Nursing VITALS: Vitals are noted on the nurse's note and reviewed by myself. Vital signs stable. GENERAL: Well-developed, well-nourished, female, who is in no acute distress and resting comfortably. Patient is cooperative with the examination. HEAD: Normocephalic atraumatic. NECK: Supple without nuchal rigidity. No lymphadenopathy. No thyromegaly. Cervical spine is nontender. HEART: Regular rate and rhythm without murmurs gallops or rubs. LUNGS: Clear to auscultation bilaterally without wheezes, rales or rhonchi. No retractions or accessory muscle use. ABDOMEN: Positive normal bowel sounds x 4. Soft, nontender, without masses or organomegaly. No guarding or rebound tenderness. MUSCULOSKELETAL: No muscle atrophy, erythema, or edema noted. Full range of motion in all extremities. NEURO: Patient was alert and oriented to person place and time. CN II through XII grossly intact. SKIN: The skin was without rash in distribution of discomfort. Course Administered Medications Discontinued Medications Aspirin (Aspirin 81 Mg Chew) 324 mg PO NOW STA Stop: 02/08/22 21:48 Last Admin: 02/08/22 21:54 Dose: 324 mg Documented By: VICKY Ioversol (Optiray 320 500ml) 116 ml IV ONCE ONE Stop: 02/08/22 22:33 Last Admin: 02/08/22 22:32 Dose: 116 ml Documented By: KIKO Nitroglycerin (Nitroglycerin 2% Ointment 30gm Tube) 1 inch EXT NOW ONE Stop: 02/08/22 21:48 Last Admin: 02/08/22 21:54 Dose: Not Given Documented By: VICKY Medical Decision Making Differential Diagnosis Differential diagnosis includes, but is not limited to: Myocardial infarction, dysrhythmia, pericarditis, pneumothorax, aortic aneurysm/dissection, DVT/PE, anxiety, GERD, PUD, electrolyte imbalance, thyroid disorder, pneumonia, bronchitis, pancreatitis, and others Laboratory Data Result diagrams: 02/08/22 20:42 02/08/22 21:15 Lab Results 02/08/22 02/08/22 02/08/22 Range/Units 20:42 20:42 20:42 WBC 8.48 (4.8-10.8) K/ul RBC 3.84 L (3.93-5.22) M/uL Hgb 11.8 L (12.0-16.0) g/dl Hct 35.3 (34.1-44.9) % MCV 91.9 (80.0-100.0) fL MCH 30.7 (25.0-34.0) pg MCHC 33.4 (32.0-36.0) g/dL RDW Std Deviation 46.3 (36.4-46.3) fL RDW Coeff of Gema 13.8 (11.5-14.5) % Plt Count 186 (130-400) K/uL MPV 9.0 L (9.4-12.3) fL Immature Gran % (Auto) 0.2 % Neut % (Auto) 63.9 % Lymph % (Auto) 21.9 % Coffey % (Auto) 10.1 % Eos % (Auto) 3.4 % Baso % (Auto) 0.5 % Neut # (Auto) 5.41 (1.4-6.5) K/uL Lymph # (Auto) 1.86 (1.2-3.4) K/uL Coffey # (Auto) 0.86 H (0.24-0.82) K/uL Eos # (Auto) 0.29 (0-0.50) K/uL Baso # (Auto) 0.04 (0-0.2) K/uL Immature Gran # (Auto) 0.02 (0.00-0.02) K/uL PT Cancelled INR Cancelled APTT Cancelled PTT Ratio Cancelled D-Dimer (0-500) ug/L FEU Sodium 137 (136-145) mmol/L Potassium TNP Chloride 102 (98-107) mmol/L Carbon Dioxide 28 (21-32) mmol/L Anion Gap 7 (3-11) BUN 15 (6-23) mg/dl Creatinine 0.74 (0.6-1.2) mg/dl Est Cr Clr Drug Dosing 61.6 ml/min Est GFR ( Amer) 87.4 ml/min Est GFR (Non-Af Amer) 75.4 ml/min BUN/Creatinine Ratio 20.3 H (10-20) Glucose 100 H (70-99(Fasting)) mg/dl Calcium 8.4 L (8.5-10.1) mg/dl Total Bilirubin 0.4 (0.2-1.0) mg/dl AST TNP ALT 12 (7-52) U/L Alkaline Phosphatase 80 (34-104) U/L Troponin I High Sens 3.0 (0-14) pg/ml Total Protein 6.7 (6.0-8.3) gm/dl Albumin 3.4 (3.4-5.0) gm/dl Globulin 3.3 (2.5-4.0) gm/dl Albumin/Globulin Ratio 1.0 (0.9-2) Lipase (11-82) U/L Urine Color Urine Appearance (Clear) Urine pH (4.5-7.5) Ur Specific Silas (1.000-1.030) Urine Protein (Negative) Urine Glucose (UA) (Negative) Urine Ketones (Negative) Urine Blood (Negative) Urine Nitrite (Negative) Urine Bilirubin (Negative) Urine Urobilinogen (Negative) Ur Leukocyte Esterase (Negative) SARS-CoV-2, RNA, NAAT (NEGATIVE) 02/08/22 02/08/22 02/08/22 Range/Units 21:15 21:15 21:15 WBC (4.8-10.8) K/ul RBC (3.93-5.22) M/uL Hgb (12.0-16.0) g/dl Hct (34.1-44.9) % MCV (80.0-100.0) fL MCH (25.0-34.0) pg MCHC (32.0-36.0) g/dL RDW Std Deviation (36.4-46.3) fL RDW Coeff of Gema (11.5-14.5) % Plt Count (130-400) K/uL MPV (9.4-12.3) fL Immature Gran % (Auto) % Neut % (Auto) % Lymph % (Auto) % Coffey % (Auto) % Eos % (Auto) % Baso % (Auto) % Neut # (Auto) (1.4-6.5) K/uL Lymph # (Auto) (1.2-3.4) K/uL Coffey # (Auto) (0.24-0.82) K/uL Eos # (Auto) (0-0.50) K/uL Baso # (Auto) (0-0.2) K/uL Immature Gran # (Auto) (0.00-0.02) K/uL PT 10.7 INR 1.0 APTT 25.6 PTT Ratio 0.9 D-Dimer 3210 H* (0-500) ug/L FEU Sodium (136-145) mmol/L Potassium 3.4 L Chloride (98-107) mmol/L Carbon Dioxide (21-32) mmol/L Anion Gap (3-11) BUN (6-23) mg/dl Creatinine (0.6-1.2) mg/dl Est Cr Clr Drug Dosing ml/min Est GFR ( Amer) ml/min Est GFR (Non-Af Amer) ml/min BUN/Creatinine Ratio (10-20) Glucose (70-99(Fasting)) mg/dl Calcium (8.5-10.1) mg/dl Total Bilirubin (0.2-1.0) mg/dl AST 16 ALT (7-52) U/L Alkaline Phosphatase (34-104) U/L Troponin I High Sens (0-14) pg/ml Total Protein (6.0-8.3) gm/dl Albumin (3.4-5.0) gm/dl Globulin (2.5-4.0) gm/dl Albumin/Globulin Ratio (0.9-2) Lipase (11-82) U/L Urine Color Urine Appearance (Clear) Urine pH (4.5-7.5) Ur Specific Silas (1.000-1.030) Urine Protein (Negative) Urine Glucose (UA) (Negative) Urine Ketones (Negative) Urine Blood (Negative) Urine Nitrite (Negative) Urine Bilirubin (Negative) Urine Urobilinogen (Negative) Ur Leukocyte Esterase (Negative) SARS-CoV-2, RNA, NAAT (NEGATIVE) 02/08/22 02/08/22 02/08/22 Range/Units 21:15 21:45 22:30 WBC (4.8-10.8) K/ul RBC (3.93-5.22) M/uL Hgb (12.0-16.0) g/dl Hct (34.1-44.9) % MCV (80.0-100.0) fL MCH (25.0-34.0) pg MCHC (32.0-36.0) g/dL RDW Std Deviation (36.4-46.3) fL RDW Coeff of Gema (11.5-14.5) % Plt Count (130-400) K/uL MPV (9.4-12.3) fL Immature Gran % (Auto) % Neut % (Auto) % Lymph % (Auto) % Coffey % (Auto) % Eos % (Auto) % Baso % (Auto) % Neut # (Auto) (1.4-6.5) K/uL Lymph # (Auto) (1.2-3.4) K/uL Coffey # (Auto) (0.24-0.82) K/uL Eos # (Auto) (0-0.50) K/uL Baso # (Auto) (0-0.2) K/uL Immature Gran # (Auto) (0.00-0.02) K/uL PT INR APTT PTT Ratio D-Dimer (0-500) ug/L FEU Sodium (136-145) mmol/L Potassium Chloride (98-107) mmol/L Carbon Dioxide (21-32) mmol/L Anion Gap (3-11) BUN (6-23) mg/dl Creatinine (0.6-1.2) mg/dl Est Cr Clr Drug Dosing ml/min Est GFR ( Amer) ml/min Est GFR (Non-Af Amer) ml/min BUN/Creatinine Ratio (10-20) Glucose (70-99(Fasting)) mg/dl Calcium (8.5-10.1) mg/dl Total Bilirubin (0.2-1.0) mg/dl AST ALT (7-52) U/L Alkaline Phosphatase (34-104) U/L Troponin I High Sens (0-14) pg/ml Total Protein (6.0-8.3) gm/dl Albumin (3.4-5.0) gm/dl Globulin (2.5-4.0) gm/dl Albumin/Globulin Ratio (0.9-2) Lipase 28 (11-82) U/L Urine Color Yellow Urine Appearance Clear (Clear) Urine pH 6.0 (4.5-7.5) Ur Specific Silas 1.007 (1.000-1.030) Urine Protein Negative (Negative) Urine Glucose (UA) Negative (Negative) Urine Ketones Negative (Negative) Urine Blood Negative (Negative) Urine Nitrite Negative (Negative) Urine Bilirubin Negative (Negative) Urine Urobilinogen Negative (Negative) Ur Leukocyte Esterase Negative (Negative) SARS-CoV-2, RNA, NAAT NEGATIVE (NEGATIVE) 02/08/22 Range/Units 23:00 WBC (4.8-10.8) K/ul RBC (3.93-5.22) M/uL Hgb (12.0-16.0) g/dl Hct (34.1-44.9) % MCV (80.0-100.0) fL MCH (25.0-34.0) pg MCHC (32.0-36.0) g/dL RDW Std Deviation (36.4-46.3) fL RDW Coeff of Gema (11.5-14.5) % Plt Count (130-400) K/uL MPV (9.4-12.3) fL Immature Gran % (Auto) % Neut % (Auto) % Lymph % (Auto) % Coffey % (Auto) % Eos % (Auto) % Baso % (Auto) % Neut # (Auto) (1.4-6.5) K/uL Lymph # (Auto) (1.2-3.4) K/uL Coffey # (Auto) (0.24-0.82) K/uL Eos # (Auto) (0-0.50) K/uL Baso # (Auto) (0-0.2) K/uL Immature Gran # (Auto) (0.00-0.02) K/uL PT INR APTT PTT Ratio D-Dimer (0-500) ug/L FEU Sodium (136-145) mmol/L Potassium Chloride (98-107) mmol/L Carbon Dioxide (21-32) mmol/L Anion Gap (3-11) BUN (6-23) mg/dl Creatinine (0.6-1.2) mg/dl Est Cr Clr Drug Dosing ml/min Est GFR ( Amer) ml/min Est GFR (Non-Af Amer) ml/min BUN/Creatinine Ratio (10-20) Glucose (70-99(Fasting)) mg/dl Calcium (8.5-10.1) mg/dl Total Bilirubin (0.2-1.0) mg/dl AST ALT (7-52) U/L Alkaline Phosphatase (34-104) U/L Troponin I High Sens 2.9 (0-14) pg/ml Total Protein (6.0-8.3) gm/dl Albumin (3.4-5.0) gm/dl Globulin (2.5-4.0) gm/dl Albumin/Globulin Ratio (0.9-2) Lipase (11-82) U/L Urine Color Urine Appearance (Clear) Urine pH (4.5-7.5) Ur Specific Silas (1.000-1.030) Urine Protein (Negative) Urine Glucose (UA) (Negative) Urine Ketones (Negative) Urine Blood (Negative) Urine Nitrite (Negative) Urine Bilirubin (Negative) Urine Urobilinogen (Negative) Ur Leukocyte Esterase (Negative) SARS-CoV-2, RNA, NAAT (NEGATIVE) Imaging Data Radiologist's Impression: Preliminary Findings Only See Final Report For Complete Findings CTA CHEST: FINDINGS: LUNGS: There is no focal infiltrate. There is no pleural effusion or pneumothorax. The tracheobronchial tree is patent. HEART: Within normal limits. VASCULATURE: No acute pulmonary embolism. Atherosclerotic changes. THYROID: Within normal limits. MEDIASTINUM & LYMPH NODES: There are no pathologically enlarged mediastinal, hilar, or axillary lymph nodes. SUPERIOR ABDOMEN: The included portions of the superior abdomen are within normal limits. MUSCULOSKELETAL: Within normal limits. IMPRESSION: No acute pulmonary embolism. Radiologist: Godwin Perez MD Preliminary Findings Only See Final Report For Complete Findings CTA NECK: No aneurysm, dissection, or hemodynamically significant stenosis of the bilateral carotid arteries. No aneurysm, dissection, or hemodynamically significant stenosis of the bilateral vertebral arteries. Radiologist: Godwin Perez MD [facility] Narrative Physical exam and history were performed. Nursing notes, EMR, and Medication List were personally reviewed. Patient appears to have vague left-sided chest pain that is intermittent in nature. When the pain occurs she does describe it as a squeezing sensation. IV access was established and labs were obtained. The patient was given aspirin but declined nitroglycerin. An order was placed for continuous cardiac monitoring. The monitor shows a rate of 77 with normal sinus rhythm. Patient's blood work is as above and was reviewed. She does not have a significantly elevated white blood cell count, gross anemia, bandemia, or significant electrolyte imbalance. Lipase and transaminases are not diagnostic. Troponin x2 is negative. Urine is without evidence of infection. COVID is negative. D-dimer is markedly elevated over 3000. Because of the vague nature of her symptoms a CT angiogram of the neck and chest were performed. These were reviewed by myself and radiology and do not show obvious acute process. The patient was reevaluated many times throughout the course of her stay and continues with discomfort. While this certainly could be musculoskeletal or gastric in nature, I do have concern that it may represent an unstable angina. The case was discussed with the on-call hospitalist team who agreed to evaluate the patient here in the ER. Please see their dictation for further patient co urse, plan, and disposition. The chart was completed utilizing [employer] Speech Voice Recognition Software. Grammatical errors, random word insertions, pronoun errors, and incomplete sentences are an occasional consequence of this system due to software limitations, ambient noise, and hardware issues. Any formal questions or concerns about the content, text, or information contained within the body of this dictation should be directly addressed to the provider for clarification. . Impression & Plan Atypical chest pain, Neck pain Discharge Plan Visit Data Chief Complaint: Neck Injury/Pain Stated Complaint: NECK PAIN, BACK PAIN ED Provider: Satinder Wolfe ED Midlevel Provider: Antoni Menjivar Discharge Problem: Atypical chest pain, Neck pain Patient Disposition: Admitted As Inpatient Discharge Instructions Interventions: ED Discharge Assessment Last Done: 02/09/22 03:25
[2022-02-08] MEDS ORDERED: NITROGLYCERIN 2% OINTMENT 30GM TUBE EXT ONE (21:47)
[2022-02-08] MEDS ORDERED: ASPIRIN 81 MG CHEW PO STA (21:47)
[2022-02-08 21:52] LABS: Potassium 3.4 mmol/L (3.5-5.1)
[2022-02-08 22:10] LABS: D Dimer 3210 ug/L FEU (0-500)
[2022-02-08] MEDS ORDERED: OPTIRAY 320 500ml IV ONE (22:32)
[2022-02-08 22:46] LABS: Appearance Urine Clear (Clear); Bilirubin Urine Negative (Negative); Blood Urine Negative (Negative); Color Urine Yellow; Glucose Urine UA Negative (Negative); Ketones Urine Negative (Negative); Leukocyte Esterase Urine Negative (Negative); Nitrite Urine Negative (Negative); Protein Urine Negative (Negative); Specific Gravity Urine 1.007 (1.000-1.030); Urobilinogen Urine Negative (Negative)
--- NOTE | 2022-02-09 02:53 | History and Physical Report ---
DATE OF ADMISSION: 02/09/2022 CHIEF COMPLAINT: Chest pain. HISTORY OF PRESENT ILLNESS: An 81-year-old female with past medical history significant for asthma-COPD overlap syndrome, hypertension, GERD, lumbar degenerative disc disease, who comes from home with chest pain. The patient says she has finished a course of antibiotics for upper respiratory infection in the morning. Her symptoms are much improved, but she still has on and off cough. She is having neck pain for the last 2 to 3 days and today morning, she noticed severe chest pain in left sided chest, going to the back, 10/10 in severity on and off. It is not constant pain, pressure-like feeling, which prompted her to come to the ER. Denies any shortness of breath. She vomited twice in the morning. Currently no headache, no dizziness, no blurred visions, no earache, no runny nose, no sore throat, no fevers. Appetite is down since her upper respiratory infection .. Denies any shortness of breath, no abdominal pain. Normal bowel and bladder movements. No swelling in the legs, no rash. Resting comfortably and hemodynamically stable. ALLERGIES: No known drug allergies. PAST MEDICAL HISTORY: As mentioned above. PAST SURGICAL HISTORY: Total knee arthroplasty, colonoscopy, dilatation and curettage, EGDs, EGD with endoscopic ultrasound, ligation of oviducts, cataract surgeries. MEDICATIONS: The patient is on calcium carbonate plus vitamin D one tablet daily, vitamin B12 1000 mcg p.o. daily, Flonase 2 puffs inhalation b.i.d., probiotics 1 tablet daily, lisinopril and hydrochlorothiazide one tablet daily, omeprazole 20 mg p.o. daily. FAMILY HISTORY: Significant for mother has arthritis; brother has bladder cancer, heart disorder; father has heart disorder; mother has hypertension. SOCIAL HISTORY: , no smoking, no alcohol, no drug use. REVIEW OF SYSTEMS: As per HPI. Rest of the review of systems is negative. PHYSICAL EXAMINATION: GENERAL: The patient is old and frail, not in acute distress. VITAL SIGNS: Temperature 36.9, pulse 77, respiratory rate 16, blood pressure 116/63, oxygen 94% on room air. HEENT: Pupils equal, round and reactive to light. Oral mucosa moist. NECK: No JVD or neck masses. CARDIOVASCULAR: S1 and S2 heard. Regular rate and rhythm. No murmur, no gallop. RESPIRATORY SYSTEM: Normal AP diameter. No accessory muscle use. No wheezing, no crackles. ABDOMEN: Soft, bowel sounds present, nontender, no distention. CENTRAL NERVOUS SYSTEM: Cranial nerves II-XII grossly intact, nonfocal. EXTREMITIES: Trace pedal edema, no erythema seen. LABORATORY DATA: WBC 8.4, hemoglobin 11.8, hematocrit 35.3, platelets 186. PT 10.7, INR 1, APTT 25.6. D-dimer 3210. Sodium 137, potassium 3.4, chloride 102, bicarbonate 28, BUN 15, creatinine 0.7, serum glucose 100, calcium 8.4, total bilirubin 0.4, AST 16, ALT 12, alkaline phosphatase 80, lipase 28. Urinalysis negative. SARS-CoV-2 rapid test negative. IMAGING DATA: CTA of the neck unremarkable. CTA of the chest unremarkable. Chest x-ray, no acute findings. EKG: Normal sinus rhythm at a rate of 86, possible left atrial enlargement, no significant change was found. ASSESSMENT AND PLAN: An 81-year-old female who presents with chest pain. 1. Chest pain: Rule out acute coronary syndrome. Initial workup is negative. D-dimer is elevated, but CTA chest unremarkable. Will follow serial enzymes, echo. Keep her n.p.o. Consult cardiology in the a.m. for further recommendations. 2. Neck pain. CTA neck unremarkable. We will monitor. 3. History of hypertension. Continue her home medications of lisinopril and hydrochlorothiazide. We will monitor the blood pressure. 4. History of gastroesophageal reflux disease: Continue omeprazole. 5. History of asthma-chronic obstructive pulmonary disease. Continue home inhalers. 6. Deep venous thrombosis prophylaxis: Sequential compression devices. DISPOSITION: Observation in [facility] tele. PT/OT prior to discharge. Social service to help with discharge planning. Job ID: [id number] [facility]
[2022-02-09] MEDS ORDERED: POLYETHYLENE (MIRALAX) 17 GM PACK PO PRN (03:20)
[2022-02-09] MEDS ORDERED: MoRPHine SULFATE 2 MG/ML CARP IV PRN (03:20)
[2022-02-09] MEDS ORDERED: ACETAMINOPHEN 325 MG TAB PO PRN (03:20)
[2022-02-09] MEDS ORDERED: NITROGLYCERIN SL 0.4 MG/TAB TAB SL PRN (03:20)
[2022-02-09] MEDS ORDERED: POTASSIUM CHLORIDE 20 MEQ/15 ML UDC PO STA (03:20)
[2022-02-09 05:54] LABS: Basophils # (auto) 0.02 K/uL (0-0.2); Basophils % (auto) 0.3 %; Eosinophils # (auto) 0.27 K/uL (0-0.50); Eosinophils % (auto) 3.9 %; Hemoglobin 11.3 g/dl (12.0-16.0); Immature Granulocytes # (auto) 0.02 K/uL (0.00-0.02); Immature Granulocytes % (auto) 0.3 %; Lymphocytes # (auto) 1.47 K/uL (1.2-3.4); Mean Corpuscular Hgb Conc 34.2 g/dL (32.0-36.0); Mean Corpuscular Volume 90.7 fL (80.0-100.0); Mean Platelet Volume 9.3 fL (9.4-12.3); Monocytes # (auto) 0.63 K/uL (0.24-0.82); Neutrophils # (auto) 4.59 K/uL (1.4-6.5); Neutrophils % (auto) 65.5 %; Platelet Count 180 K/uL (130-400); RDW Coefficient of Variation 13.5 % (11.5-14.5); RDW Standard Deviation 45.1 fL (36.4-46.3); Red Blood Count 3.64 M/uL (3.93-5.22)
[2022-02-09 06:30] LABS: Troponin I High Sensitivity 2.9 pg/ml (0-14)
[2022-02-09 06:32] LABS: BUN Creatinine Ratio 14.5 (10-20); Calcium 8.6 mg/dl (8.5-10.1); Creatinine Clr Calc Pharmacy 54.9 ml/min; Est GFR (African American) 76.1 ml/min; Est GFR (Non-African American) 65.7 ml/min; Magnesium 1.9 mg/dl (1.7-2.4); Potassium 4.1 mmol/L (3.5-5.1)
--- NOTE | 2022-02-09 07:39 | CT Scan Report ---
CT ANGIOGRAPHY OF THE NECK WITH CONTRAST CLINICAL HISTORY: Right-sided neck pain. COMPARISON STUDY: No previous studies for comparison. Technique: CT angiography of the carotid and vertebral arteries was obtained using Optiray and 3D rec onstruction on an independent workstation. NASCET criteria was utilized. Automated exposure control was utilized for the study. A dose lowering technique was utilized adhering to the principles of ALA RA. CT DOSE: 558.07 mGy.cm Findings: Please note that the chest CT will be reported separately. The bilateral common carotid, ce rvical internal carotid and vertebral vertebral arteries are patent. There is no dissection or stenos is within these vessels. The right vertebral artery is dominant. There is no aneurysm within the neck . Slice portions of the intracranial contents are unremarkable. There is no cervical lymphadenopathy. No acute cervical spine fracture. A small air-fluid level within left maxillary sinus is present. Th e left renal sinus is opacified. Orbits are unremarkable. IMPRESSION: 1. Unremarkable CTA of the neck. No stenosis or dissection. 2. Opacified left sphenoid sinus. Air-fluid level within the left maxillary sinus. ACT 112: Negative or not required by law. Electronically signed by: Adrián Arreola M.D. 02/09/2022 7:38 AM
--- NOTE | 2022-02-09 07:48 | XRay Report ---
XR chest 1V portable CLINICAL HISTORY: Chest pain, nonspecific COMPARISON STUDY: Chest CT June 042018. Chest radiograph October 21, 2019. FINDINGS: Lung volumes are normal. No consolidation to suggest pneumonia. Minimal left basilar opacit y reflects atelectasis. There is no pneumothorax or pleural effusion. Cardiac size is normal. Mediast inal contours are normal. There is no evidence for pulmonary edema. IMPRESSION: No acute cardiopulmonary findings. ACT 112: Negative or not required by law. Electronically signed by: Adrián Arreola M.D. 02/09/2022 7:47 AM
--- NOTE | 2022-02-09 07:52 | CT Scan Report ---
CT ANGIOGRAPHY OF THE CHEST, PULMONARY EMBOLUS PROTOCOL CLINICAL HISTORY: Chest pain radiating to back. COMPARISON STUDY: Chest CT June 20, 2018 and chest radiograph performed earlier today. TECHNIQUE: Following IV administration of 116 mL of Optiray, helical axial images of the chest were o btained utilizing the pulmonary embolus protocol. Maximal intensity projections and sagittal and cor onal reformats were viewed on an independent 3D workstation. IV contrast was administered without co mplication. Automated exposure control was utilized for the study. A dose lowering technique was ut ilized adhering to the principles of ALARA. FINDINGS: No pulmonary emboli are present. There is no thoracic aortic dissection. Mild cardiomegaly is noted. There is no pericardial effusion. No enlarged axillary, mediastinal or hilar lymph nodes a re present. There is no consolidation to suggest pneumonia. Subpleural groundglass opacities reflect atelectasis. No pneumothorax or pleural effusion is present. Central airways are patent. No acute fra ctures are identified within the visualized bony thorax. IMPRESSION: 1. No pulmonary emboli identified. 2. No thoracic aortic dissection. 3. No acute intrathoracic findings. ACT 112: Negative or not required by law. Electronically signed by: Adrián Arreola M.D. 02/09/2022 7:51 AM
[2022-02-09] MEDS ORDERED: PANTOprazole 40 MG TAB PO SCH (09:00)
[2022-02-09] MEDS ORDERED: CALCIUM 600MG + VIT D 400 IU TAB PO SCH (09:00)
[2022-02-09] MEDS ORDERED: FLUTICASONE FUROATE 200MCG 14 PUFFS/INHALER INH SCH (09:00)
[2022-02-09] MEDS ORDERED: LISINOPRIL/HCTZ 10/12.5MG TAB PO SCH (09:00)
[2022-02-09] MEDS ORDERED: CYANOCOBALAMIN (B-12) 500 MCG TABLET PO SCH (09:00)
[2022-02-09] MEDS ORDERED: ADVANCED PROBIOTIC 1250 MG CAPSULE PO SCH (09:00)
--- NOTE | 2022-02-09 09:16 | Electrocardiogram Report ---
Test Reason : Blood Pressure : / mmHG Vent. Rate : 086 BPM Atrial Rate : 086 BPM P-R Int : 158 ms QRS Dur : 070 ms QT Int : 348 ms P-R-T Axes : 047 003 038 degrees QTc Int : 416 ms Poor data quality, interpretation may be adversely affected Normal sinus rhythm Possible Left atrial enlargement Borderline ECG When compared with ECG of 21-OCT-2019 14:17, No significant change was found Confirmed by Dallas Colon ([id number]) on 02/09/2022 9:16:23 AM Referred By: REFERRED SELF Confirmed By:Dallas Colon
--- NOTE | 2022-02-09 09:25 | Cardiology Consultation ---
Date of Consultation February 09, 2022 Assessment & Plan (1) Atypical chest pain: (2) Hypertension: (3) Fatigue: Plan Atypical chest discomfort. Discomfort is reproducible with certain movements of the torso and also by certain movements of the left upper extremity. EKG on presentation without acute change, without change compared to prior. High- sensitivity troponin I negative x3. Obtained imaging without acute cardiopulmonary abnormality. Resting echocardiography pending interpretation. Further recommendations as per Dr. Casanova. General measures advised. Further evaluation as per hospitalist. Hypertension. Mild to moderately elevated on presentation. Controlled. Follow. Chronic fatigue. Check TSH with reflex free T4 if indicated. Supervising Physician Co-Signing Physician Notes Patient seen and examined with Satinder Hahn PA-C. Agree with findings and assessment as above. Chest discomfort is completely reproducible with movement. Musculoskeletal in nature. Echo unremarkable. No further cardiac testing or intervention is indicated at this time. Ok to d/c to home from cardiac standpoint. Recommend orthopedic surgery eval. History of Present Illness Reason for Consultation: Chest pain Requesting Physician: Mckenzie Attending Physician: Minh History of Present Illness History of Present Illness: Greta Nicolas is a very pleasant 81-year-old female who presented to the [facility] at the urging of her daughter in the evening of February 08, 2022. Yesterday, February 08, 2022, the patient awoke with pain around the left breast and left side of the chest that progressed and went around to the left mid back. The discomfort waxed and waned throughout the day. At times it was very intense. She describes one time while sitting at the table having such intense pain that it hurts to even try to stand up. The discomfort is aggravated by moving the left upper extremity and by certain position changes of the torso. She describes experiencing intense pain once when trying to reach up to get a class out of the cupboard. She notes sitting with a heating pad on all afternoon without benefit. She notes taking an Aleve for back and muscle, also without benefit. She notes that pain seems to have settled in her back. When she is feels fine however when she attempts to pain is aggravated. EKG on presentation is somewhat poor in technical quality, appearing to reveal sinus rhythm at 86 bpm with possible left atrial enlargement. When compared to prior available tracings, there is no significant change. High-sensitivity troponin I negative times three 3.0, 2.9, 2.9 pg/ml. Chest x-ray on presentation showed no acute cardiopulmonary findings. Chest CT obtained due to an elevated D-dimer showed no evidence of pulmonary emboli. There was no evidence of thoracic dissection. There were no acute intrathoracic findings. Neck CTA showed no evidence of stenosis or dissection. It did reveal a small air-fluid level within the left maxillary sinus and and opacified left sphenoid sinus. No new or unusual shortness of breath. No tachypalpitations. No orthopnea, PND, or edema. No dizziness, near syncope, or syncope. No epistaxis, hemoptysis, melena, hematochezia, or hematuria. The patient denies prior cardiac history except for having a heart murmur. She specifically denies history of CAD, [place], CHF, arrhythmia, rheumatic fever, or scarlet fever. Past Medical and Surgical History Hypertension Asthma. Chronic bronchitis Gastroesophageal reflux disease Large hiatal hernia Lumbar degenerative disc disease Status post lumbar surgical intervention by Dr. Genao Chronic back pain Ovarian cyst History of colonic polyps Status post tubal ligation Uterine leiomyoma Status post dilatation and curettage Status post right knee replacement Status post cataract extraction Family History: Father with an [place] at during sitting in the car at the [employer]. Mother 3 years ago, age 96. Patient has 4 brothers, the oldest 1 with CAD. Multiple paternal relatives with CAD Social History:. . Lives with her 89-year-old . 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 Two children. Complete Review of Systems: Constitutional: Inactive. No energy. No current fevers, sweats, or chills. Skin: No rash HENT: No amaurosis fugax. Status post bilateral cataract extraction. Pulmonary: + Asthma. Recent episode of recurrent bronchitis that started in mid December, treated with two courses of Prednisone without benefit, most recently treated with Augmentin with benefit. No history of sleep apnea. No history of pulmonary embolism. Cardiac: See above. GI/Abd: GERD. Large hiatal hernia. Gastric polyp. Colonic polyps. No dysphagia Denies liver problems. Denies kidney problems Vascular: Denies carotid disease, AAA, or claudication Hematologic: Notes multiple family members with blood clots. No abnormal bleeding. Musculoskeletal: Cervical neck pain 3-4 days ago, aggravated by movement. Chronic back pain. Neurologic: Denies history of TIA or CVA. Denies history of seizure. Female : See above. Endocrine: Denies history of diabetes. Denies thyroid issues. Complete Review of Systems is as stated above, negative, or noncontributory. Allergies Allergy/AdvReac Type Severity Reaction Status Date / Time No Known Allergies Allergy Verified 02/08/22 22:24 Home Medications Medication Instructions Recorded Confirmed Type calcium carbonate 600 mg-vitamin 1 tab PO DAILY 06/20/18 02/08/22 History D3 10 mcg (400 unit) tablet (Calcium 600 + D(3)) fluticasone propionate 110 2 puff inhalation BID 06/20/18 02/08/22 History mcg/actuation HFA aerosol inhaler (Flovent HFA) lisinopril 10 1 tab PO DAILY 10/21/19 02/08/22 History mg-hydrochlorothiazide 12.5 mg tablet omeprazole 20 mg capsule,delayed 20 mg PO QAM 10/21/19 02/08/22 History release Lactobacillus acidophilus 10 10,000 mmu cells PO DAILY 02/08/22 02/08/22 History billion cell capsule (Probiotic) clotrimazole 1 % topical cream 1 applic topical BID PRN SKIN RASH 02/08/22 02/08/22 History cyanocobalamin (vitamin B-12) 1,000 mcg PO DAILY 02/08/22 02/08/22 History 1,000 mcg tablet (Vitamin B-12) Patient History Medical History (Updated 02/09/22 @ 10:02 by Satinder Hahn) Asthma GERD (gastroesophageal reflux disease) HTN (hypertension) Surgical History H/O total knee replacement H/O tubal ligation S/P appendectomy S/P dilatation and curettage S/P lumbar spinal fusion Family History Other Myocardial infarction Social History Smoking Status: Never smoker Hx Alcohol Use: No Hx Substance Use: No Preferred Language: Indonesian Communication Ability: Effective Beliefs That Will Affect Care: None marital status: Current Living Situation: Alone current occupational status: employed Feels Safe at Home: Yes Assistive Devices: None Physical Exam Physical Exam: General: A&Ox3. NAD. HENT: Normocephalic. Atraumatic. Eyes: PER. Conjunctiva pink, sclera clear. Neck: No carotid bruits. No JVD. No HJR. Heart: RRR, 74 bpm. Soft systolic murmur at the right upper sternal border. No diastolic murmur. No rub. Lungs: Clear to auscultation. Abdomen: +BS. Soft. Nontender. No masses or organomegaly. Extremities: No clubbing, cyanosis, or edema. Limited neurological examination is without focal deficits. Pulses: radial=2/4, posterior tibial=1/4. Results & Data ([facility]) Vital Signs (Past 12 Hours) Vital Signs Temp Pulse Resp BP Pulse Ox Pulse Ox O2 Del Method 02/09/22 07:58 98 02/09/22 04:58 80 L Nasal Cannula 02/09/22 04:00 36.4 C L 78 16 109/60 93 Room Air 02/09/22 04:00 93 02/09/22 01:00 77 16 116/63 94 Room Air 02/08/22 23:50 78 16 135/64 98 Room Air O2 Del Method O2 Flow Rate 02/09/22 07:58 Nasal Cannula 02/09/22 04:58 0 02/09/22 04:00 02/09/22 04:00 Room Air 02/09/22 01:00 02/08/22 23:50 Laboratory Results Cardiac Enzymes 02/08/22 02/08/22 02/08/22 Range/Units 20:42 21:15 23:00 AST TNP 16 Troponin I High Sens 3.0 2.9 (0-14) pg/ml 02/09/22 Range/Units 05:28 AST Troponin I High Sens 2.9 (0-14) pg/ml Coagulation 02/08/22 02/08/22 Range/Units 20:42 21:15 PT Cancelled 10.7 APTT Cancelled 25.6 CBC 02/08/22 02/09/22 Range/Units 20:42 05:28 WBC 8.48 7.00 (4.8-10.8) K/ul RBC 3.84 L 3.64 L (3.93-5.22) M/uL Hgb 11.8 L 11.3 L (12.0-16.0) g/dl Hct 35.3 33.0 L (34.1-44.9) % Plt Count 186 180 (130-400) K/uL Neut # (Auto) 5.41 4.59 (1.4-6.5) K/uL Lymph # (Auto) 1.86 1.47 (1.2-3.4) K/uL [place] # (Auto) 0.86 H 0.63 (0.24-0.82) K/uL Eos # (Auto) 0.29 0.27 (0-0.50) K/uL Baso # (Auto) 0.04 0.02 (0-0.2) K/uL Comprehensive Metabolic Panel 02/08/22 02/08/22 02/09/22 Range/Units 20:42 21:15 05:28 Sodium 137 139 (136-145) mmol/L Potassium TNP 3.4 L 4.1 D Chloride 102 105 (98-107) mmol/L Carbon Dioxide 28 29 (21-32) mmol/L BUN 15 12 (6-23) mg/dl Creatinine 0.74 0.83 (0.6-1.2) mg/dl Glucose 100 H 98 (70-99(Fasting)) mg/dl Calcium 8.4 L 8.6 (8.5-10.1) mg/dl AST TNP 16 ALT 12 (7-52) U/L Alkaline Phosphatase 80 (34-104) U/L Total Protein 6.7 (6.0-8.3) gm/dl Albumin 3.4 (3.4-5.0) gm/dl Intake and Output 02/08/22 02/09/22 02/09/22 22:59 06:59 14:59 Other: Weight 81 kg Weight Measurement Method Chair Scale (1) Hypertension Hypertension type: essential hypertension Qualified Code(s): I10 - Essential (primary) hypertension
--- NOTE | 2022-02-09 15:11 | Discharge Summary ---
Date of Service February 09, 2022 Admission HPI Per Admitting Provider An 81-year-old female with past medical history significant for asthma-COPD overlap syndrome, hypertension, GERD, lumbar degenerative disc disease, who comes from home with chest pain. The patient says she has finished a course of antibiotics for upper respiratory infection in the morning. Her symptoms are much improved, but she still has on and off cough. She is having neck pain for the last 2 to 3 days and today morning, she noticed severe chest pain in left sided chest, going to the back, 10/10 in severity on and off. It is not constant pain, pressure-like feeling, which prompted her to come to the ER. Denies any shortness of breath. She vomited twice in the morning. Currently no headache, no dizziness, no blurred visions, no earache, no runny nose, no sore throat, no fevers. Appetite is down since her upper respiratory infection .. Denies any shortness of breath, no abdominal pain. Normal bowel and bladder movements. No swelling in the legs, no rash. Resting comfortably and hemodynamically stable. Admission Exam Per Admitting Provider GENERAL: The patient is old and frail, not in acute distress. VITAL SIGNS: Temperature 36.9, pulse 77, respiratory rate 16, blood pressure 116/63, oxygen 94% on room air. HEENT: Pupils equal, round and reactive to light. Oral mucosa moist. NECK: No JVD or neck masses. CARDIOVASCULAR: S1 and S2 heard. Regular rate and rhythm. No murmur, no gallop. RESPIRATORY SYSTEM: Normal AP diameter. No accessory muscle use. No wheezing, no crackles. ABDOMEN: Soft, bowel sounds present, nontender, no distention. CENTRAL NERVOUS SYSTEM: Cranial nerves II-XII grossly intact, nonfocal. EXTREMITIES: Trace pedal edema, no erythema seen. Principal Diagnosis Chest pain likely secondary to back pain/spinal stenosis, now resolved Discharge Exam GENERAL: The patient is old and frail, not in acute distress. HEENT: NC/AT, EOMI, Pupils equal, round and reactive to light. Oral mucosa moist. NECK: No JVD or neck masses. CARDIOVASCULAR: S1 and S2 heard. Regular rate and rhythm. No murmur, no gallop. RESPIRATORY: Normal AP diameter. No accessory muscle use. No wheezing, no crackles. ABDOMEN: Soft, bowel sounds present, nontender, no distention. NEURO:Alert oriented, speech fluent, answers appropriately, moves extremities spontaneously EXTREMITIES: Trace pedal edema, no erythema seen. Discharge Data Allergies Allergy/AdvReac Type Severity Reaction Status Date / Time No Known Allergies Allergy Verified 02/08/22 22:24 Consultations 02/09/22 01:00 ED Decision to Admit Stat 02/09/22 08:00 Consult Cardiology Routine Ordered Studies 02/08/22 22:05 CT angio chest PE protocol Urgent FINDINGS: No pulmonary emboli are present. There is no thoracic aortic dissection. Mild cardiomegaly is noted. There is no pericardial effusion. No enlarged axillary, mediastinal or hilar lymph nodes are present. There is no consolidation to suggest pneumonia. Subpleural groundglass opacities reflect atelectasis. No pneumothorax or pleural effusion is present. Central airways are patent. No acute fractures are identified within the visualized bony thorax. IMPRESSION: 1. No pulmonary emboli identified. 2. No thoracic aortic dissection. 3. No acute intrathoracic findings. CTA neck with con [CT angio neck with con] Urgent Findings: Please note that the chest CT will be reported separately. The bilateral common carotid, cervical internal carotid and vertebral vertebral arteries are patent. There is no dissection or stenosis within these vessels. The right vertebral artery is dominant. There is no aneurysm within the neck. Slice portions of the intracranial contents are unremarkable. There is no cervical lymphadenopathy. No acute cervical spine fracture. A small air-fluid level within left maxillary sinus is present. The left renal sinus is opacified. Orbits are unremarkable. IMPRESSION: 1. Unremarkable CTA of the neck. No stenosis or dissection. 2. Opacified left sphenoid sinus. Air-fluid level within the left maxillary sinus. Total Time Total Time Spent Total Time Spent (In Minutes): 40 Discharge Plan Discharge Items Patient Disposition: Home - Self-Care Reason For Visit: CHEST PAIN Discharge Diagnosis: Chest pain likely secondary to back pain/spinal stenosis, now resolved Activity: Per Instructions section Non-emergency contact: Primary Care Provider Call non-emergency contact if: you have any medication questions and your symptoms worsen Follow-up/Referrals: Dallas Pradhan MD [Primary Care Provider] - (Date & Time 02/13/2022 3:20 PM Provider Dallas Pradhan MD Department [facility] ) Diet: Heart Healthy Addtl Attending Provider Instructions: Follow-up with your primary care doctor, and orthopedics surgeon. There were no medication changes made. For pain you can take Tylenol 1000 mg up to 3 times a day. Max daily dose is 3000 mg daily. You can use lidocaine patch, you can get this [id number], often under the name of Salonpas. Continue with your back injections as previously. Pending Studies at Discharge: No Stand-Alone Forms: [facility], Smoking Cessation Medications and DC Order Prescriptions: Continued fluticasone propionate [Flovent HFA] 110 mcg/actuation Hfa Aerosol Inhaler 2 puff INHALATION BID calcium carbonate-vitamin D3 [Calcium 600 + D(3)] 600 mg(1,500mg) -400 unit Tablet 1 tab PO DAILY omeprazole 20 mg capsule,delayed release(DR/EC) 20 mg PO QAM lisinopril-hydrochlorothiazide 10-12.5 mg tablet 1 tab PO DAILY cyanocobalamin (vitamin B-12) [Vitamin B-12] 1,000 mcg Tablet 1,000 mcg PO DAILY clotrimazole 1 % cream 1 applic TOPICAL BID PRN (Reason: SKIN RASH) Probiotic 10 billion cell Capsule 10,000 mmu cells PO DAILY Discharge Orders: Discharge Order (Routine); Ordered 02/09/22 Ordered By: Lai Wilkinson Admission Data Admit Date/Time: 02/09/22 01:17 Attending Provider: Lai Wilkinson Admit Provider: Andrews Rnicon Primary Care Provider: Dallas Pradhan Other Providers: Andrews Rincon ; Corky Casanova ; Antoni Madrid ; Marc Sweeney ; Shaji Hill ; Rajinder Leonard ; Satinder Hahn ; Magdalena Rodriguez ; Evelyn Galan ; Angeline Light ; Max Meza
== END 2022-02-09 15:53 | disposition home or self-care (01) ==
LOC: EDINP 20:09 → ED 20:09 → EDINP 02-09 03:25